=== PATIENT | male | born 1940 | race Caucasian/White ===

== ENCOUNTER 2024-10-17 11:41 | Inpatient (IN) | payer OTHER ==
[2024-10-17] MEDS ORDERED: ACETAMINOPHEN 500 MG TAB ONE (12:03)
[2024-10-17] MEDS ORDERED: IBUPROFEN 400 MG TAB ONE (12:04)
[2024-10-17] MEDS ORDERED: NA CHLORIDE 0.9% 100 ML ONE ×2 (12:04→21:33)
[2024-10-17] MEDS ORDERED: PIPERACIL/TAZO 3.375 GM VIAL IV ONE (12:04)
[2024-10-17] MEDS ORDERED: NA CHLORIDE 0.9% 2,000 ML ONE ×2 (12:04→19:10)
[2024-10-17 13:11] LABS: Absolute Basophils 0.1 K/uL (0-0.5); Absolute Eosinophils 0.1 K/uL (0-0.5); Absolute Lymphocytes (CBC) 0.9 K/uL (0.7-4.9); Absolute Monocytes 5.1 K/uL (0.1-1.3); Basophils % 0.4 % (0-1.3); Eosinophils % 0.7 % (0-4.4); Hematocrit 29.8 % (39.6-49.0); Hemoglobin 9.9 g/dL (13.6-17.9); Lymphocytes % 6.4 % (15.3-44.8); MCH 32.1 pg (27.0-35.0); MCHC 33.2 g/dL (32.0-36.0); MCV 96.7 fL (80-100); MPV 6.9 fL (7.6-11.3); Monocytes % 36.2 % (3.3-12.3); Neutrophils % 56.3 % (41.7-73.7); Platelets 161 thou/uL (152-406); RBC Red Blood Cell Count 3.09 M/uL (4.33-5.43); Red Cell Distribution Width 22.5 % (12.1-15.2)
[2024-10-17 13:24] LABS: Calcium Oxalate Crystals- Ur Few /HPF (None Seen); Specific Gravity 1.017 (1.005-1.030); Sqamous Epithelial <5 /HPF (None Seen); Urine Bacteria 20-50 /HPF (<20); Urine Bilirubin NEGATIVE (Negative); Urine Blood 3+ (OVER) (Negative); Urine Clarity Extremely Turbid (Clear); Urine Color Orange (Yellow); Urine Culture Reflex Order REFLEXED; Urine Glucose NEGATIVE (Negative); Urine Ketones NEGATIVE (Negative); Urine Microscopic Reflex YN ORDER UMIC; Urine Nitrite 1+ (Negative); Urine Protein 3+ (Negative); Urine RBC >50 /HPF (None Seen); Urine Urobilinogen Normal (Normal); Urine WBC >50 /HPF (<5); Urine WBC Clump Many /HPF (None Seen)
--- NOTE | 2024-10-17 13:30 | RAD REPORT ---
EXAM: Chest Single View HISTORY: COUGH COMPARISON: None. FINDINGS: LUNGS/PLEURA: The lungs are clear. No pleural effusions or pneumothorax. No pulmonary edema. MEDIASTINUM: The mediastinal silhouette is within normal limits. CARDIAC: Mild cardiomegaly UPPER ABDOMEN: No significant abnormality. BONES: No acute abnormality. LINES/TUBES/OTHER: Pacemaker present. IMPRESSION: No evidence of acute cardiopulmonary disease.
[2024-10-17 13:32] LABS: SARS-CoV-2 Antigen CONTROL BLUE LINE VIS/BG OK; SARS-CoV-2 Antigen Rapid Res Negative (Negative)
[2024-10-17] MEDS ORDERED: NOREPINEPHRINE BITARTRATE/D5W 4 MG/250 ML BAG IV ONE ×3 (14:23→19:50)
[2024-10-17 14:26] LABS: Albumin 2.2 g/dL (3.4-5.0); Albumin/Globulin Ratio 0.5 (1.1-1.8); Anion Gap 11.5 mEq/L (5.0-15.0); Bilirubin Total 1.2 mg/dL (0.2-1.0); Globulin 4.1 g/dL (2.3-3.5); Potassium 3.5 mEq/L (3.5-5.1); Protein, Total 6.3 g/dL (6.4-8.2)
--- NOTE | 2024-10-17 14:29 | ER ---
Nurse's Notes [facility] Name: Adi Chapa Jr Age: 83 yrs Sex: Male : 1940 Arrival Date: 10/17/2024 Time: 11:41 Bed 4 Private MD: Diagnosis: Severe sepsis with septic shock;UTI/ Urinary tract infection, site not specified;Pyelonephritis acute Presentation: 10/17 11:58 Chief complaint: EMS states: [facility] SINCE THURSDAY. Coronavirus screen: At this time, bp the client does not indicate any symptoms associated with coronavirus-19. Ebola Screen: No symptoms or risks identified at this time. Initial Sepsis Screen: Does the patient meet any 2 criteria? No. Patient's initial sepsis screen is negative. Does the patient have a suspected source of infection? No. Patient's initial sepsis screen is negative. Risk Assessment: Do you want to hurt yourself or someone else? Patient reports no desire to harm self or others. Onset of symptoms is unknown. 11:58 Method Of Arrival: EMS: [facility] bp 11:58 Acuity: JOSÉ 2 bp Triage Assessment: 12:02 General: Appears uncomfortable, obese. bp Historical: - Allergies: 23:25 Cefdinir; al5 23:25 atorvastatin; al5 - PMHx: 23:25 Hypertensive disorder; Atrial fibrillation; Congestive heart failure; Gout; al5 Hypercholesterolemia; - PSHx: 23:25 pacemaker; stents; kidney stone removal; bladder stone removal; hernia repair; al5 - Immunization history:: Adult Immunizations. - Infectious Disease History:: Denies. - Social history:: Smoking status: Patient reports the use of cigarette tobacco products, unknown amount. Screenin:35 Abuse screen: Denies threats or abuse. Denies injuries from another. Nutritional ko1 screening: No deficits noted. Tuberculosis screening: No symptoms or risk factors identified. 20:16 [facility] ED Fall Risk Assessment (Adult) History of falling in the last 3 months, al5 including since admission No falls in past 3 months (0 pts) Confusion or Disorientation No (0 pts) Intoxicated or Sedated No (0 pts) Impaired Gait Yes (1 pt) Mobility Assist Device Used Yes (1 pt) Altered Elimination Yes (1 pt) Score/Fall Risk Level 3 or more points = High Risk Oriented to surroundings, Maintained a safe environment, Provided non-skid footwear, Hourly rounding (assess needs \T\ fall precautionary measures) done. Assessment: 12:00 General: Appears ill, Behavior is calm, cooperative, appropriate for age. Pain: Denies bp pain. 13:00 Reassessment: No changes from previously documented assessment. Patient is alert, bp oriented x 3, equal unlabored respirations, skin warm/dry/pink. : suprapubic catheter in place to gravity drainage Urine is cloudy. 14:00 Reassessment: No changes from previously documented assessment. Patient is alert, bp oriented x 3, equal unlabored respirations, skin warm/dry/pink. 15:00 Reassessment: No changes from previously documented assessment. Patient is alert, bp oriented x 3, equal unlabored respirations, skin warm/dry/pink. TRANSFER INITIATED. 17:00 Reassessment: No changes from previously documented assessment. Patient is alert, bp oriented x 3, equal unlabored respirations, skin warm/dry/pink. TRANSFER CANCELLED FOR ADMIT. 19:10 General: Appears in no apparent distress. ill, well groomed, Behavior is calm, al5 cooperative. Pain: Denies pain. Neuro: Level of Consciousness is awake, alert, obeys commands, Oriented to person, place, time, situation. 19:10 Cardiovascular: Patient's skin is warm and dry. Respiratory: Airway is patent al5 Respiratory effort is even, unlabored, Respiratory pattern is regular, symmetrical. GI: No signs and/or symptoms were reported involving the gastrointestinal system. : suprapubic catheter in place to gravity drainage Urine is cloudy. EENT: No signs and/or symptoms were reported regarding the EENT system. Derm: Skin is intact, is healthy with good turgor, Skin is pink, warm \T\ dry. normal. Musculoskeletal: No signs and/or symptoms reported regarding the musculoskeletal system. 20:30 Reassessment: Patient appears in no apparent distress at this time. No changes from al5 previously documented assessment. Patient and/or family updated on plan of care and expected duration. Pain level reassessed. Patient is alert, oriented x 3, equal unlabored respirations, skin warm/dry/pink. 21:57 Reassessment: Patient appears in no apparent distress at this time. Patient and/or al5 family updated on plan of care and expected duration. Pain level reassessed. Reassessment: Patient appears in no apparent distress at this time. No changes from previously documented assessment. Patient and/or family updated on plan of care and expected duration. Pain level reassessed. Patient is alert, oriented x 3, equal unlabored respirations, skin warm/dry/pink. 22:40 Neuro: Level of Consciousness is awake, alert, obeys commands, Oriented to person, al5 place, time, situation. Cardiovascular: Rhythm is ventricular pacer. Respiratory: Airway is patent Respiratory effort is even, unlabored, Respiratory pattern is regular, symmetrical. GI: No signs and/or symptoms were reported involving the gastrointestinal system. : suprapubic catheter in place to gravity drainage Urine is cloudy, no additional urine output. EENT: No signs and/or symptoms were reported regarding the EENT system. Derm: Skin is intact, is healthy with good turgor, Skin is dry, Skin is pale, Skin temperature is warm. Musculoskeletal: No signs and/or symptoms reported regarding the musculoskeletal system. 22:40 Musculoskeletal: No signs and/or symptoms reported regarding the musculoskeletal system.al5 Vital Signs: 11:58 BP 90 / 50; Pulse 110; Resp 20; Temp 103; Pulse Ox 95% ; Weight 104.33 kg; bp 12:09 BP 105 / 46; Pulse Ox 97% ; ec2 12:12 BP 84 / 53; Pulse 106; Resp 20; Temp 100.2; Pulse Ox 99% ; Weight 82.55 kg; Height 6 bp ft. 0 in. ; 12:32 BP 105 / 46; ec2 12:35 BP 105 / 46; Pulse 111; Resp 20; Pulse Ox 100% ; ko1 13:50 BP 97 / 49; Pulse 104; Resp 17; Pulse Ox 98% ; ko1 13:50 Pulse 105; ec2 14:07 Pulse 74; ec2 14:15 BP 66 / 40; Pulse 80; Resp 15; Pulse Ox 97% ; ko1 14:50 BP 85 / 70; Pulse 80; Resp 15; Pulse Ox 97% ; ko1 15:00 BP 73 / 28; Pulse 76; Resp 18; Pulse Ox 97% ; ko1 15:31 BP 91 / 41; Pulse 77; Resp 16; Pulse Ox 97% ; ko1 15:50 BP 82 / 42; Pulse 79; Resp 15; Pulse Ox 97% ; ko1 16:21 BP 97 / 40; ec2 16:31 BP 97 / 40; Pulse 71; Resp 15; Pulse Ox 98% ; ko1 16:42 BP 100 / 43; Pulse 70; Resp 16; Pulse Ox 97% ; ko1 16:42 BP 100 / 43; ec2 17:00 BP 107 / 46; Pulse 80; Resp 20; Pulse Ox 96% ; bp 19:00 BP 95 / 53; Pulse 76; Resp 15; Pulse Ox 100% on R/A; al5 19:30 BP 101 / 50; Pulse 73; Resp 21; Pulse Ox 100% on R/A; al5 19:47 BP 78 / 52; Pulse 70; Resp 22; Pulse Ox 100% on R/A; al5 19:56 BP 83 / 56; Pulse 67; Resp 19; Pulse Ox 100% on R/A; al5 20:00 BP 81 / 48; Pulse 73; Resp 22; Pulse Ox 100% on R/A; al5 20:13 BP 82 / 53; Pulse 65; Resp 22; Pulse Ox 100% on R/A; al5 20:15 BP 84 / 53; Pulse 69; Resp 19; Pulse Ox 100% on R/A; al5 20:25 BP 90 / 56; Pulse 72; Resp 21; Temp 97.6(O); Pulse Ox 100% on R/A; al5 20:30 BP 89 / 48; Pulse 71; Resp 20; Pulse Ox 100% on R/A; al5 20:45 BP 88 / 45; Pulse 70; Resp 21; Pulse Ox 100% on R/A; al5 21:00 BP 82 / 59; Pulse 94; Resp 24; Pulse Ox 100% on R/A; al5 21:15 BP 85 / 49; Pulse 78; Resp 24; Pulse Ox 100% on R/A; al5 21:30 BP 84 / 53; Pulse 76; Resp 22; Pulse Ox 99% on R/A; al5 21:45 BP 72 / 54; Pulse 76; Resp 12; Pulse Ox 100% on R/A; al5 22:00 BP 82 / 48; Pulse 79; Resp 12; Pulse Ox 100% on R/A; al5 22:15 BP 58 / 41; Pulse 71; Resp 15; Pulse Ox 100% on R/A; al5 22:18 BP 56 / 42; Pulse 69; Resp 11; Pulse Ox 100% on R/A; al5 22:30 BP 58 / 37; Pulse 65; Resp 11; Pulse Ox 100% on R/A; al5 22:35 BP 65 / 48; Pulse 65; Resp 13; Pulse Ox 100% on R/A; al5 22:40 BP 59 / 44; Pulse 61; Resp 12; Pulse Ox 100% on R/A; al5 22:45 BP 63 / 45; Pulse 60; Resp 16; Pulse Ox 100% on R/A; al5 22:50 BP 74 / 51; Pulse 62; Resp 21; Pulse Ox 100% on R/A; al5 22:56 BP 60 / 49; Pulse 78; Resp 20; Pulse Ox 100% on R/A; al5 23:00 BP 74 / 49; Pulse 68; Resp 18; Pulse Ox 100% on R/A; al5 23:05 BP 69 / 46; Pulse 70; Resp 13; Pulse Ox 100% on R/A; al5 23:10 BP 62 / 45; Pulse 70; Resp 21; Pulse Ox 99% on R/A; al5 23:15 BP 70 / 51; Pulse 69; Resp 18; Pulse Ox 100% on R/A; al5 23:20 BP 74 / 51; Pulse 61; Resp 20; Pulse Ox 100% on R/A; al5 23:22 BP 87 / 62; Pulse 78; Resp 23; Pulse Ox 100% on R/A; al5 23:25 BP 113 / 67; Pulse 69; Resp 23; Pulse Ox 100% on R/A; al5 23:40 BP 116 / 68; Pulse 67; Resp 21; Pulse Ox 100% on R/A; al5 12:12 Body Mass Index 24.68 (82.55 kg, 182.88 cm) bp 23:40 in ICU prior to leaving patient with ICU team and transferring care al5 ED Course: 11:45 Patient arrived in ED. ec2 11:45 Ralf Leiva MD is Attending Physician. ec2 11:55 Arm band placed on Patient placed in an exam room, on a stretcher. ll1 11:57 Andre Molina, RN is Primary Nurse. bp 12:01 Triage completed. bp 12:16 12 lead ECG. rs6 12:24 EKG done, by ED staff, reviewed by Ralf Leiva MD. ko1 12:31 Radiology exam delayed due to nurse starting IV. rs4 12:35 Patient has correct armband on for positive identification. Placed in gown. Bed in low ko1 position. Call light in reach. Side rails up X2. Provided Education on: labs, meds. 12:35 No provider procedures requiring assistance completed. ko1 12:53 Inserted saline lock: 20 gauge in right forearm, using aseptic technique. wrist, using rs6 aseptic technique. hand, using aseptic technique. Blood collected. 13:23 CXR XRAY In Process Unspecified. EDMS 14:19 Lab(s) recollected, by me, sent to lab. ko1 14:36 CT Abd/Pelvis - Without Contrast In Process Unspecified. EDMS 14:56 Accessed peripheral vein via ultrasound, utilizing dynamic ultrasound technique Blood bp collected. 15:15 initiated transfer to [facility], pt was denied due to no beds a any [facility] hospital.per Марина. 15:22 initiated transfer to [facility]. bd 16:32 Cherelle Berry MD is Hospitalizing Provider. ec2 16:35 transfer cancelled by provider pt will be admitted here. bd 18:00 Door closed. Noise minimized. Lights dimmed. Warm blanket given. Repositioned patient. ko1 20:17 Patient admitted, IV remains in place. al5 20:45 20G L Forearm IV removed due to infiltration. al5 21:18 Procedure consent explained by staff, explained by physician, signed by patient, verbal al5 consent for initials to be signed due to him not being able to see the paper well. had attempted to put initials down but pen was drying out even after switching pens. 21:35 Primary Nurse role handed off by Andre Molina, RN rv1 21:53 Kianna Jarquin, NITO is Primary Nurse. al5 21:57 Assisted provider with central line placement. Set up central line tray. Triple lumen al5 line placed in right internal jugular. Line placed by Marco Antonio Bender MD Placement verified by CXR, blood return, Dressed with Tegaderm, Patient tolerated well. Before procedure, did Practitioner(s) obtain informed consent? Yes. Patient \T\ family education about procedure, CLABSI prevention and S/S of infection? Yes. Time-out/Briefing performed prior to start of procedure? Yes. Was handwashing/sanitizing done immediately prior to procedure? Yes. Was patient positioned to in a way to prevent air embolism? Yes. Was procedure site sterilized? Yes, with chlorhexidine. Was the site allowed to dry? Yes. Was local anesthetic and/or sedation utilized? Yes. During the procedure, did the Practitioner(s) maintain a sterile field? Yes. Were unused ports clamped during insertion? Yes. Was a 2nd qualified MD obtained after 3 unsuccessful insertion attempts? No. Was blood aspirated from each lumen? Yes. After the procedure, did the Practitioner(s) clean the site and apply a sterile dressing? Yes. 23:35 One-on-one care X 240 minutes. al5 Administered Medications: 22:53 Discontinued: epinephrine (pf)0.01 mcg/kg/min IV at calculated rate See Administration al5 Instructions; Standard concentration 4 mg / 250 mL D5W; Recommended max rate 2 mcg/kg/min; Titrate 0.01 mcg/kg/min as often as every 3 minutes to achieve goal [see titration policy]; Goal parameter MAP greater than 65 mmHg. 12:23 Drug: Acetaminophen PO 1000 mg PO once Route: PO; ko1 17:07 Follow up: Response: No adverse reaction bp 12:23 Drug: Ibuprofen PO 800 mg PO once Route: PO; ko1 17:07 Follow up: Response: No adverse reaction bp 12:41 Drug: Piperacillin-Tazobactam IVPB 3.375 grams IVPB once over 60 mins; (mix in NS 100 bp mL) Route: IVPB; Infused Over: 60 mins; Site: left forearm; 13:41 Follow up: Response: No adverse reaction; IV Status: Completed infusion; IV Intake: ko1 100ml 12:42 Drug: NS 0.9% IV (30 ml/kg) 30 ml/kg IV at bolus once; Sepsis Protocol; to be given as bp a bolus over 90 minutes Route: IV; Rate: bolus; Site: left forearm; 17:07 Follow up: IV Status: Completed infusion bp 14:28 Drug: Norepinephrine IV 0.1 mcg/kg/min IV at calculated rate See Administration ko1 Instructions; (Standard concentration 4 mg / 250 mL D5W); Recommended max rate 3 mcg/kg/min; Titrate 0.05 mcg/kg/min as often as every 5 minutes to achieve goal (see titration policy); Goal parameter MAP greater than 65 mmHg. Route: IV; Rate: 5 mcg/min; Site: right wrist; 14:57 Follow up: Rate change 8 mcg/min ko1 15:15 Follow up: Rate change 15 mcg/min ko1 15:50 Follow up: BP 82 / 42; Pulse 79 bpm; Resp 15 bpm; Pulse Ox 97% ; Rate change 20 mcg/min ko1 16:31 Follow up: BP 97 / 40; Pulse 71 bpm; Resp 15 bpm; Pulse Ox 98% ; Rate change 30 mcg/min ko1 17:06 Follow up: IV Status: Infusion continued bp 10/18 00:24 Follow up: Response: No adverse reaction; IV Status: Infusion continued upon admission al5 10/17 18:51 Drug: EPINEPHrine (PF) IV 0.01 mcg/kg/min IV at calculated rate See Administration ko1 Instructions; Standard concentration 4 mg / 250 mL D5W; Recommended max rate 2 mcg/kg/min; Titrate 0.01 mcg/kg/min as often as every 3 minutes to achieve goal [see titration policy]; Goal parameter MAP greater than 65 mmHg. Route: IV; Rate: 0.05 mcg/kg/min; Site: left antecubital; 20:35 Follow up: Rate change 0.1 mcg/kg/min al5 19:20 Drug: NS 0.9% IV 1000 ml IV at 1000 ml once; to be given as a bolus over 60 minutes al5 Route: IV; Rate: 1000 ml; Site: right wrist; 20:19 Follow up: Response: No adverse reaction; IV Status: Completed infusion; IV Intake: al5 1000ml Medication: 13:50 VIS not applicable for this client. ko1 Intake: 13:41 IV: 100ml; Total: 100ml. ko1 20:19 IV: 1000ml; Total: 1100ml. al5 Outcome: 14:29 ER care complete, transfer ordered by MD. ec2 16:32 Decision to Hospitalize by Provider. ec2 23:39 Patient left the ED. bm8 23:39 Admitted to ICU accompanied by nurse, accompanied by tech, via stretcher, room 5, with kl chart, 23:39 Condition: stable 23:39 Instructed on the need for admit, Demonstrated understanding of instructions, Signatures: Dispatcher [employer] EDMS Latha Ackerman Kimberly RN Andre Nelson RN Beth Lofton RN RN ll1 Cat Sears, NITO RN Francheska Gonzalez rs4 Guera Martinez rv1 Ralf Leiva MD MD ec2 Juancho Saldivar, RN RN bm8 Kianna Jarquin RN RN al5 Smith, Ryan rs6 Corrections: (The following items were deleted from the chart) 12:54 12:53 Inserted saline lock: 20 gauge in right forearm, using aseptic technique. wrist, rs6 using aseptic technique. hand, using aseptic technique. Blood collected. rs6 22:48 20:25 BP 90 / 56; Pulse 72bpm; Resp 21bpm; Pulse Ox 100% RA; al5 al5 10/18 99:10/17 23:40 BP 166 / 68; Pulse 67bpm; Resp 21bpm; Pulse Ox 100% RA; in ICU prior to al5 leaving patient with ICU team and transferring care; al5 10/18 99:10/17 22:10 Reassessment: Patient appears in no apparent distress at this time. Patient al5 and/or family updated on plan of care and expected duration. Pain level reassessed. al5 10/18 99:10/17 22:10 Neuro: Level of Consciousness is awake, alert, obeys commands, Oriented to al5 person, place, time, situation, al5 10/18 99:10/17 22:10 Respiratory: Airway is patent Respiratory effort is even, unlabored, al5 Respiratory pattern is regular, symmetrical, al5 10/18 99:10/17 22:10 Cardiovascular: Rhythm is ventricular pacer al5 al5 10/18 99:10/17 22:10 GI: No signs and/or symptoms were reported involving the gastrointestinal al5 system. al5 10/18 99:10/17 22:10 : suprapubic catheter in place to gravity drainage Urine is cloudy, no al5 additional urine output al5 10/18 99:10/17 22:10 EENT: No signs and/or symptoms were reported regarding the EENT system. al5 al5 10/18 99:10/17 22:10 Derm: Skin is intact, is healthy with good turgor, Skin is dry, Skin is al5 pale, Skin temperature is warm al5 10/18 99:10/17 22:10 Musculoskeletal: No signs and/or symptoms reported regarding the al5 musculoskeletal system. al5 10/18 99:10/17 22:10 Musculoskeletal: No signs and/or symptoms reported regarding the al5 musculoskeletal system. al5 10/18 99:10/17 21:57 Reassessment: Patient appears in no apparent distress at this time. No al5 changes from previously documented assessment. Patient and/or family updated on plan of care and expected duration. Pain level reassessed. Patient is alert, oriented x 3, equal unlabored respirations, skin warm/dry/pink. al5 10/18 99:10/17 22:40 Reassessment: Patient appears in no apparent distress at this time. Patient al5 and/or family updated on plan of care and expected duration. Pain level reassessed. al5 10/18 99:10/17 22:40 Reassessment: Patient appears in no apparent distress at this time. No al5 changes from previously documented assessment. Patient and/or family updated on plan of care and expected duration. Pain level reassessed. Patient is alert, oriented x 3, equal unlabored respirations, skin warm/dry/pink. al5 10/18 99:10/17 22:40 Musculoskeletal: No signs and/or symptoms reported regarding the al5 musculoskeletal system. al5
--- NOTE | 2024-10-17 14:30 | EDPHYS ---
Physician Documentation [facility] Name: Adi Chapa Jr Age: 83 yrs Sex: Male : 1940 Arrival Date: 10/17/2024 Time: 11:41 Bed 4 Private MD: ED Physician Ralf Leiva HPI: 10/17 11:56 This 83 yrs old Male presents to ER via EMS with complaints of dysuria. ec2 11:56 Patient arrives today for evaluation of fever as well as dysuria. Onset of symptoms ec2 several days ago. No cough or cold symptoms. Some abdominal discomfort as well.. Historical: - Allergies: 23:25 Cefdinir; al5 23:25 atorvastatin; al5 - PMHx: 23:25 Hypertensive disorder; Atrial fibrillation; Congestive heart failure; Gout; al5 Hypercholesterolemia; - PSHx: 23:25 pacemaker; stents; kidney stone removal; bladder stone removal; hernia repair; al5 - Immunization history:: Adult Immunizations. - Infectious Disease History:: Denies. - Social history:: Smoking status: Patient reports the use of cigarette tobacco products, unknown amount. ROS: 11:57 Constitutional: as per hpi ec2 Exam: 11:57 Constitutional: GEN: NAD Head: atraumatic Eyes: EOMI Ears: External ears are ec2 normal. CV: Tachycardia LUNGS: no respiratory distress ABD: non-distended, soft, generally tender SKIN: no evidence of rashes MSK: no evidence of trauma Vital Signs: 11:58 BP 90 / 50; Pulse 110; Resp 20; Temp 103; Pulse Ox 95% ; Weight 104.33 kg; bp 12:09 BP 105 / 46; Pulse Ox 97% ; ec2 12:12 BP 84 / 53; Pulse 106; Resp 20; Temp 100.2; Pulse Ox 99% ; Weight 82.55 kg; Height 6 bp ft. 0 in. ; 12:32 BP 105 / 46; ec2 12:35 BP 105 / 46; Pulse 111; Resp 20; Pulse Ox 100% ; ko1 13:50 BP 97 / 49; Pulse 104; Resp 17; Pulse Ox 98% ; ko1 13:50 Pulse 105; ec2 14:07 Pulse 74; ec2 14:15 BP 66 / 40; Pulse 80; Resp 15; Pulse Ox 97% ; ko1 14:50 BP 85 / 70; Pulse 80; Resp 15; Pulse Ox 97% ; ko1 15:00 BP 73 / 28; Pulse 76; Resp 18; Pulse Ox 97% ; ko1 15:31 BP 91 / 41; Pulse 77; Resp 16; Pulse Ox 97% ; ko1 15:50 BP 82 / 42; Pulse 79; Resp 15; Pulse Ox 97% ; ko1 16:21 BP 97 / 40; ec2 16:31 BP 97 / 40; Pulse 71; Resp 15; Pulse Ox 98% ; ko1 16:42 BP 100 / 43; Pulse 70; Resp 16; Pulse Ox 97% ; ko1 16:42 BP 100 / 43; ec2 17:00 BP 107 / 46; Pulse 80; Resp 20; Pulse Ox 96% ; bp 19:00 BP 95 / 53; Pulse 76; Resp 15; Pulse Ox 100% on R/A; al5 19:30 BP 101 / 50; Pulse 73; Resp 21; Pulse Ox 100% on R/A; al5 19:47 BP 78 / 52; Pulse 70; Resp 22; Pulse Ox 100% on R/A; al5 19:56 BP 83 / 56; Pulse 67; Resp 19; Pulse Ox 100% on R/A; al5 20:00 BP 81 / 48; Pulse 73; Resp 22; Pulse Ox 100% on R/A; al5 20:13 BP 82 / 53; Pulse 65; Resp 22; Pulse Ox 100% on R/A; al5 20:15 BP 84 / 53; Pulse 69; Resp 19; Pulse Ox 100% on R/A; al5 20:25 BP 90 / 56; Pulse 72; Resp 21; Temp 97.6(O); Pulse Ox 100% on R/A; al5 20:30 BP 89 / 48; Pulse 71; Resp 20; Pulse Ox 100% on R/A; al5 20:45 BP 88 / 45; Pulse 70; Resp 21; Pulse Ox 100% on R/A; al5 21:00 BP 82 / 59; Pulse 94; Resp 24; Pulse Ox 100% on R/A; al5 21:15 BP 85 / 49; Pulse 78; Resp 24; Pulse Ox 100% on R/A; al5 21:30 BP 84 / 53; Pulse 76; Resp 22; Pulse Ox 99% on R/A; al5 21:45 BP 72 / 54; Pulse 76; Resp 12; Pulse Ox 100% on R/A; al5 22:00 BP 82 / 48; Pulse 79; Resp 12; Pulse Ox 100% on R/A; al5 22:15 BP 58 / 41; Pulse 71; Resp 15; Pulse Ox 100% on R/A; al5 22:18 BP 56 / 42; Pulse 69; Resp 11; Pulse Ox 100% on R/A; al5 22:30 BP 58 / 37; Pulse 65; Resp 11; Pulse Ox 100% on R/A; al5 22:35 BP 65 / 48; Pulse 65; Resp 13; Pulse Ox 100% on R/A; al5 22:40 BP 59 / 44; Pulse 61; Resp 12; Pulse Ox 100% on R/A; al5 22:45 BP 63 / 45; Pulse 60; Resp 16; Pulse Ox 100% on R/A; al5 22:50 BP 74 / 51; Pulse 62; Resp 21; Pulse Ox 100% on R/A; al5 22:56 BP 60 / 49; Pulse 78; Resp 20; Pulse Ox 100% on R/A; al5 23:00 BP 74 / 49; Pulse 68; Resp 18; Pulse Ox 100% on R/A; al5 23:05 BP 69 / 46; Pulse 70; Resp 13; Pulse Ox 100% on R/A; al5 23:10 BP 62 / 45; Pulse 70; Resp 21; Pulse Ox 99% on R/A; al5 23:15 BP 70 / 51; Pulse 69; Resp 18; Pulse Ox 100% on R/A; al5 23:20 BP 74 / 51; Pulse 61; Resp 20; Pulse Ox 100% on R/A; al5 23:22 BP 87 / 62; Pulse 78; Resp 23; Pulse Ox 100% on R/A; al5 23:25 BP 113 / 67; Pulse 69; Resp 23; Pulse Ox 100% on R/A; al5 23:40 BP 116 / 68; Pulse 67; Resp 21; Pulse Ox 100% on R/A; al5 12:12 Body Mass Index 24.68 (82.55 kg, 182.88 cm) bp 23:40 in ICU prior to leaving patient with ICU team and transferring care al5 Procedures: 21:57 Central Line: the site was prepped with Betadine, in sterile fashion, a triple lumen sp4 catheter was inserted, in the right internal jugular vein, in 1 attempts. placement was verified, by CXR, by blood return, Ultrasound-guided central line, the site was dressed with 4X4s, Tegaderm, using sterile technique, the patient tolerated the procedure, well, Ultrasound-guided central line placed for resuscitation. 10/18 00:31 Performed Suprapubic catheter replacement, suprapubic catheter replaced with the sp4 patient and confirmed to be in urinary bladder via Gastrografin enhanced pelvic x-ray. . MDM: 10/17 11:45 Medical Screening Exam initiated ec2 11:57 Data reviewed: vital signs, nurses notes. ED course: Patient arrives today for dysuria ec2 as well as fever. Examination yields tachycardia. Will obtain a septic workup and empirically treat with antibiotics for possible source. Will obtain CT abdomen pelvis as well to evaluate for intra-abdominal pathology. Differential diagnosis include UTI, viral infection, intra-abdominal infection.. 12:22 ED course: EKG independently reviewed and interpreted by me, shows A-fib with rate of ec2 105, no acute ST segment elevations, intervals are nonactionable.. 12:43 ED course: Sepsis reassessment complete. ec2 13:10 ED course: Sepsis reassessment complete. ec2 13:50 ED course: Patient with improving tachycardia. ec2 14:28 ED course: Patient with hypertensive blood pressures, will place the patient on ec2 Levophed and transferred to ICU capable facility as we have no ICU capability at this time.. 14:30 ED course: Patient was recently admitted to [facility] and wants to be transferred ec2 back there for ICU admission . 15:03 ED course: Patient was hypotensive blood pressures in the 60s, initiated Levophed at 8 ec2 mics per minute, patient with improvement in blood pressure 85/70.. 16:20 ED course: Attempted to transfer patient to [facility], [facility], [facility], [address] however they are declined due to capacity at this time.. 16:30 ED course: Will admit here for continued care. Family appreciative and would also like 2 to stay here. 10/18 00:29 ED course: After Montemayor Replacement - XR PELVIS 1-2 VIEWS CLINICAL STATEMENT: Suprapubic sp4 catheter COMPARISON: None TECHNIQUE: 3 frontal view of the pelvis was obtained following Gastrografin contrast administration via the suprapubic catheter. FINDINGS: The first image demonstrates a contrast-filled suprapubic catheter terminates in the distal urethra. Small amount of extraluminal contrast at the level of the diaphragmatic urethra could be within the urethra versus external to the patient. The last image demonstrates interval retraction of the catheter into the urinary bladder. The contrast opacified urinary bladder is incompletely distended and demonstrates multiple diverticula. There is contrast opacification of entire course of the urethra. There is focal widening of contrast enhanced area at diaphragmatic urethra; underlying injury or ulceration cannot be excluded. There is trace contrast filling of bilateral distal ureters. Bones are intact. Multiple small phleboliths in pelvis. IMPRESSION: 1. Urinary bladder diverticulosis. 2. Focal widening of contrast enhanced diaphragmatic urethra; underlying injury or ulceration cannot be excluded. . ED course: EXAM: Chest Single View HISTORY: central line placement Right IJ COMPARISON: Same-day FINDINGS: Right IJ approach central line placement. Tip overlies the expected location of the mid SVC. The heart is shifted to the left which explains the slight leftward shift of the line tip. No pneumothorax. Pacemaker. IMPRESSION: Right IJ approach central line with tip likely overlying the expected location of the mid SVC. Note that the tip of the IJ catheter deviates slightly towards the left but this likely is the expected course of the SVC as the heart is somewhat shifted to the left. No pneumothorax. . 10/17 11:46 Order name: Blood Culture Adult (2) 2 10/17 11:46 Order name: CBC with Diff ec2 10/17 11:46 Order name: CMP; Complete Time: 14:33 2 10/17 11:46 Order name: Lactate w/ 2H reflex if indic.; Complete Time: 13:45 2 10/17 11:46 Order name: Protime (+inr); Complete Time: 15:35 2 10/17 11:46 Order name: Ptt, Activated; Complete Time: 15:35 2 10/17 11:46 Order name: Urinalysis w/ reflexes; Complete Time: 13:45 2 10/17 11:49 Order name: Influenza Screen (a \T\ B); Complete Time: 13:45 ec2 10/17 11:49 Order name: SARS RAPID; Complete Time: 13:37 ec2 10/17 13:17 Order name: Manual Differential EDMS 10/17 13:40 Order name: Ghost Lactate-NO COLLECT Timer; Complete Time: 15:43 EDMS 10/17 13:43 Order name: Urine Culture EDMS 10/17 19:24 Order name: ABG Arterial Blood Gas EDMS 10/17 19:24 Order name: C-Reactive Protein EDMS 10/17 19:24 Order name: C-Reactive Protein EDMS 10/17 19:24 Order name: CBC with Automated Diff EDMS 10/17 19:24 Order name: CBC with Automated Diff EDMS 10/17 19:24 Order name: Comprehensive Metabolic Panel EDMS 10/17 19:24 Order name: Comprehensive Metabolic Panel EDMS 10/17 19:24 Order name: Magnesium EDMS 10/17 19:24 Order name: Magnesium EDMS 10/17 19:24 Order name: NT PRO-BNP EDMS 10/17 19:24 Order name: NT PRO-BNP EDMS 10/17 19:24 Order name: Phosphorus EDMS 10/17 19:24 Order name: Phosphorus EDMS 10/17 19:24 Order name: Procalcitonin EDMS 10/17 19:24 Order name: Procalcitonin; Complete Time: 21:59 EDMS 10/17 19:24 Order name: Protime (+INR) EDMS 10/17 19:24 Order name: Protime (+INR) EDMS 10/17 19:24 Order name: PTT, Activated Partial Thromb EDMS 10/17 19:24 Order name: PTT, Activated Partial Thromb EDMS 10/17 19:24 Order name: Troponin High Sensitivity EDMS 10/17 19:24 Order name: Troponin High Sensitivity EDMS 10/17 19:24 Order name: Troponin High Sensitivity EDMS 10/17 19:24 Order name: Troponin High Sensitivity EDMS / 19:24 Order name: Troponin High Sensitivity; Complete Time: 21:59 EDMS 10/17 20:29 Order name: Lactate Sepsis 2 HR Follow-up; Complete Time: 21:59 EDMS 10/17 11:49 Order name: CXR XRAY; Complete Time: 13:37 ec2 10/17 14:16 Order name: CT Abd/Pelvis - Without Contrast; Complete Time: 15:24 ec2 10/17 19:24 Order name: Echo with Doppler EDSC 10/17 21:58 Order name: Chest Single View XRAY [facility] 10/17 21:59 Order name: CT Abd/Pelvis - Without Contrast 4 10/17 22:28 Order name: RAD; Complete Time: 22:52 EDMS 10/17 22:52 Order name: Pelvis XRAY: check montemayor placement 4 10/17 11:46 Order name: EKG; Complete Time: 11:46 ec2 10/17 19:24 Order name: CONS Physician Consult EDSC 10/17 11:46 Order name: Accucheck; Complete Time: 12:11 ec2 10/17 11:46 Order name: Cardiac monitoring; Complete Time: 12:11 ec2 10/17 11:46 Order name: EKG - Nurse/Tech; Complete Time: 12:11 ec2 10/17 11:46 Order name: IV Saline Lock - Large Bore; Complete Time: 12:42 ec2 10/17 11:46 Order name: Labs collected and sent; Complete Time: 12:42 ec2 10/17 11:46 Order name: O2 Per Protocol; Complete Time: 12:11 ec2 10/17 11:46 Order name: O2 Sat Monitoring; Complete Time: 12:11 ec2 10/17 11:46 Order name: Vital Signs; Complete Time: 12:11 ec2 10/17 13:21 Order name: Labs - recollect needed: blue, green, purple; Complete Time: 14:19 1 10/17 14:26 Order name: Labs - recollect needed: recollect blue top, fill to line; Complete Time: ll1 14:57 Administered Medications: 10/17 22:53 Discontinued: epinephrine (pf)0.01 mcg/kg/min IV at calculated rate See Administration al5 Instructions; Standard concentration 4 mg / 250 mL D5W; Recommended max rate 2 mcg/kg/min; Titrate 0.01 mcg/kg/min as often as every 3 minutes to achieve goal [see titration policy]; Goal parameter MAP greater than 65 mmHg. 12:23 Drug: Acetaminophen PO 1000 mg PO once Route: PO; ko1 17:07 Follow up: Response: No adverse reaction bp 12:23 Drug: Ibuprofen PO 800 mg PO once Route: PO; ko1 17:07 Follow up: Response: No adverse reaction bp 12:41 Drug: Piperacillin-Tazobactam IVPB 3.375 grams IVPB once over 60 mins; (mix in NS 100 bp mL) Route: IVPB; Infused Over: 60 mins; Site: left forearm; 13:41 Follow up: Response: No adverse reaction; IV Status: Completed infusion; IV Intake: ko1 100ml 12:42 Drug: NS 0.9% IV (30 ml/kg) 30 ml/kg IV at bolus once; Sepsis Protocol; to be given as bp a bolus over 90 minutes Route: IV; Rate: bolus; Site: left forearm; 17:07 Follow up: IV Status: Completed infusion bp 14:28 Drug: Norepinephrine IV 0.1 mcg/kg/min IV at calculated rate See Administration ko1 Instructions; (Standard concentration 4 mg / 250 mL D5W); Recommended max rate 3 mcg/kg/min; Titrate 0.05 mcg/kg/min as often as every 5 minutes to achieve goal (see titration policy); Goal parameter MAP greater than 65 mmHg. Route: IV; Rate: 5 mcg/min; Site: right wrist; 14:57 Follow up: Rate change 8 mcg/min ko1 15:15 Follow up: Rate change 15 mcg/min ko1 15:50 Follow up: BP 82 / 42; Pulse 79 bpm; Resp 15 bpm; Pulse Ox 97% ; Rate change 20 mcg/min ko1 16:31 Follow up: BP 97 / 40; Pulse 71 bpm; Resp 15 bpm; Pulse Ox 98% ; Rate change 30 mcg/min ko1 17:06 Follow up: IV Status: Infusion continued bp 04 00:24 Follow up: Response: No adverse reaction; IV Status: Infusion continued upon admission al5 10/17 18:51 Drug: EPINEPHrine (PF) IV 0.01 mcg/kg/min IV at calculated rate See Administration ko1 Instructions; Standard concentration 4 mg / 250 mL D5W; Recommended max rate 2 mcg/kg/min; Titrate 0.01 mcg/kg/min as often as every 3 minutes to achieve goal [see titration policy]; Goal parameter MAP greater than 65 mmHg. Route: IV; Rate: 0.05 mcg/kg/min; Site: left antecubital; 20:35 Follow up: Rate change 0.1 mcg/kg/min al5 19:20 Drug: NS 0.9% IV 1000 ml IV at 1000 ml once; to be given as a bolus over 60 minutes al5 Route: IV; Rate: 1000 ml; Site: right wrist; 20:19 Follow up: Response: No adverse reaction; IV Status: Completed infusion; IV Intake: al5 1000ml Disposition Summary: 10/17/24 16:32 Hospitalization Ordered Notes: Hospitalization Status: Inpatient Admission ec2 Provider: Cherelle Berry ec2 Condition: Serious(10/17/24 16:32) ec2 Problem: an acute exacerbation(10/17/24 16:32) ec2 Symptoms: have improved(10/17/24 16:32) ec2 Bed/Room Type: Standard ec2 Location: Intensive Care Unit(10/17/24 20:11) kb3 Room Assignment: 5-(10/17/24 20:11) kb3 Diagnosis - Severe sepsis with septic shock(10/17/24 16:32) ec2 - UTI/ Urinary tract infection, site not specified(10/17/24 16:32) ec2 - Pyelonephritis acute ec2 Forms: - Medication Reconciliation Form ec2 - SBAR form ec2 - Leadership Thank You Letter ec2 Critical care time excluding procedures: 13:47 Critical care time: Bedside Care: 30 minutes, Consultation: 5 minutes. Total time: 35 ec2 minutes Signatures: Dispatcher [employer] EDMS Andre Molina, RN RN Beth Eduardo RN RN ll1 Deanne Mauricio RN RN kb3 Cat Sears RN RN Guera Parry rv1 Marco Antonio Bender MD MD sp4 Ralf Leiva MD MD ec2 Kianna Jarquin RN RN al5 Corrections: (The following items were deleted from the chart) 11:49 11:49 Influenza Screen (A \T\ B)+BA.LAB.BRZ ordered. EDMS EDMS 11:49 11:49 SARS-COV-2 Antigen Rapid+I.LAB.BRZ ordered. EDMS EDMS 11:49 11:49 Abdomen Pelvis W Con+CT.RAD.BRZ ordered. EDMS EDMS 14:24 12:51 Abdomen ordered. EDMS EDMS 15:43 14:29 transferring doc ec2 ec2 16:30 14:29 [facility] ec2 ec2 16:30 14:29 Higher level of care ec2 ec2 16:30 14:29 Serious ec2 ec2 16:30 14:29 an ongoing problem ec2 ec2 16:30 14:29 have improved ec2 ec2 16:30 14:29 Severe sepsis with septic shock ec2 ec2 16:30 15:43 transferring doc ec2 ec2 16:30 15:43 UTI/ Urinary tract infection, site not specified ec2 ec2 16:30 15:43 Acute kidney failure, unspecified ec2 ec2 19:00 16:32 Intensive Care Unit ec2 rv1 19:00 16:32 ec2 rv1 20:11 19:00 [facility] ER HOLD rv1 kb3 20:11 19:00 ERHOLD- rv1 kb3
--- NOTE | 2024-10-17 15:13 | RAD REPORT ---
EXAMINATION: CT ABDOMEN AND PELVIS WITHOUT CONTRAST CLINICAL INDICATION: Male, 83 years old.ABD PAIN TECHNIQUE: CT abdomen and pelvis was performed, without IV contrast, as per department protocol. Axia l, sagittal and coronal reconstructions were obtained. One or more of the following dose reduction techniques were used: Automated exposure control, adjustment of the mA and/or kV according to the pat ient size, and/or iterative reconstruction. Unless otherwise specified, incidental findings do not require dedicated imaging follow-up. [id number]. IV CONTRAST: Not administered. COMPARISON: None FINDINGS: The lack of intravenous contrast limits the sensitivity of this exam for evaluation of solid visceral organs, vascular structures, and retroperitoneum. LOWER CHEST: Dependent atelectasis. No significant pericardial effusion. Multivessel coronary artery calcifications.Cardiomegaly. Pacemaker leads. Mild thickening distal esophagus. UPPER GI: No significant abnormality. LIVER: Benign appearing low density liver lesions. No suspicious mass. GALLBLADDER/BILE DUCTS: Cholelithiasis without CT evidence of acute cholecystitis.? PANCREAS: No mass, ductal dilation, or katlin-pancreatic fluid. SPLEEN: Mild splenomegaly. ADRENALS: No adrenal masses. KIDNEYS AND URETERS: No hydronephrosis. 6 mm stone in the upper left renal pelvis which is not obstru cting. Bilateral renal cysts. Punctate stone in the upper pole right kidney. Moderate left-sided perinephric stranding. There is also periureteric stranding. ABDOMINAL AORTA AND OTHER VESSELS: Mild atherosclerotic changes. PERITONEUM: No abnormal free fluid. No free air. LYMPH NODES: No pathologic lymphadenopathy. ABDOMINAL WALL: Unremarkable SMALL BOWEL/COLON: Small bowel has normal course and caliber. No colonic wall thickening or pericolon ic inflammatory changes. URINARY BLADDER: Bladder wall thickening. Bladder contains gas. Suprapubic catheter present. The tip of the suprapubic catheter terminates in the prostatic urethra. There is an outpouching along the superior aspect of the bladder which could be gas within a ladder diverticulum though it may be secon jennifer to a bladder ulceration. No free air or fluid. REPRODUCTIVE ORGANS: No pathologic process. MUSCULOSKELETAL: Multilevel degenerative changes in the spine. No acute fracture. ADDITIONAL FINDINGS: None. IMPRESSION: Suprapubic catheter within a thick-walled gas-containing bladder. This is concerning for infection wi th possible bladder wall ulceration though without free air or fluid to indicate fran perforation. Left-sided periureteric and renal stranding is also concerning for an ascending urinary tract infecti on and possible left-sided polynephritis. No hydronephrosis.
[2024-10-17 15:26] LABS: PT Prothrombin Time 18.5 SECONDS (9.4-12.5); PTT, Activated Partial Thromb 30.7 SECONDS (24.3-36.9); Protime INR 1.77
[2024-10-17] MEDS: HYDROCORTISONE SUC 100 MG INJ IV ONE (19:22)
--- NOTE | 2024-10-17 19:24 | P.HP ---
Certification for Inpatient Patient admitted to: Inpatient With expected LOS: >2 Midnights Patient will require the following post-hospital care: None Practitioner: I am a practitioner with admitting privileges, knowledge of patient current condition, hospital course, and medical plan of care. Services: Services provided to patient in accordance with Admission requirements found in Title 42 Section 412.3 of the Code of Federal Regulations Patient History Date of Service: 10/17/24 Reason for admission: Altered mental status; UTI History of Present Illness: Patient is an 83-year-old gentleman came to the hospital with septic shock. Patient lives by himself. He had a suprapubic catheter placed in December 2023. The family states this was because of a large prostate and multiple kidney stones. Since patient had a suprapubic catheter he has had episodes of sepsis x 3. Each 1 the family is concerned that he will not survive, but he does turn around and gets better. The family is wanting the suprapubic catheter removed. Patient had similar episodes this morning and he was brought into the emergency room. Patient was severely hypotensive and patient's workup revealed patient had a UTI with sepsis. Patient was started on Levophed, and once it reached the max dose they started epi drip as well. When I saw the patient, we also started bolusing IV fluids. Patient was given an addiitonal 1 L of IV fluids. Will give additional IV fluids at this time. Repeat lactic acid is pending as well. Patient may need bicarb as well. Patient will be admitted to the ICU. Patient also has a history of coronary artery disease and has had a stent placed recently. Patient required a pacemaker placement when he was in the hospital for an extended period and was dropping his heart rate. Family mentions that he has had a history of congestive heart failure. They do not know how well his heart is pumping as he is proceed most of his care in [place]. He is here visiting. Patient will be admitted for further evaluation. Allergies No Known Allergies Allergy (Unverified 10/17/24 18:25) Home Medications: Allopurinol 300 mg PO BEDTIME 10/18/24 Amiodarone HCl 100 mg PO DAILY 10/18/24 Apixaban [Eliquis] 2.5 mg PO BEDTIME 10/18/24 Apixaban [Eliquis] 7.5 mg PO BREAKFAST 10/18/24 Furosemide [Lasix] 20 mg PO DAILY PRN 10/18/24 Gabapentin 300 mg PO BID 10/18/24 Meclizine HCl 25 mg PO PRN PRN 10/18/24 Multivitamin [Daily Multivitamin] 1 each PO DAILY 10/18/24 Rosuvastatin Calcium 20 mg PO BEDTIME 10/18/24 Tamsulosin HCl [Flomax] 0.4 mg PO BEDTIME 10/18/24 Ubidecarenone [Co Q-10] 100 mg PO BEDTIME 10/18/24 carvediloL [Carvedilol] 6.25 mg PO BID 10/18/24 - Past Medical/Surgical History -: BPH -: Nephrolithiasis -: CAD -: Arrhythmia -: Pacemaker placement -: Suprapubic catheter placement - Family History Father Family History: Reviewed- Non-Contributory - Social History Smoking Status: Never smoker Alcohol use: No CD- Drugs: No Review of Systems 10-point ROS is otherwise unremarkable Physical Examination - Vital Signs Temperature: 98 F Blood Pressure: 90/60 Pulse: 80 Respirations: 18 Pulse Ox (%): 95 - Physical Exam General: Alert, In no apparent distress, Oriented x1, Moderate distress, Confused, Delirious HEENT: Atraumatic, PERRLA, Mucous membr. moist/pink, EOMI, Sclerae nonicteric Neck: Supple, 2+ carotid pulse no bruit, No LAD, Without JVD or thyroid abnormality Respiratory: Diminished Cardiovascular: Regular rate/rhythm, Normal S1 S2, Systolic murmur Gastrointestinal: Normal bowel sounds, Soft and benign, Non-distended, No tenderness, No rebound, No guarding Musculoskeletal: No clubbing, No swelling, No tenderness Integumentary: No rashes Neurological: Other (Abnormal gait and abnormal strength) Lymphatics: No axilla or inguinal lymphadenopathy Urinary: Suprapubic catheter - Studies Laboratory Data (last 24 hrs) 10/17/24 10/17/24 10/17/24 14:53 14:00 12:55 WBC 14.10 H Hgb 9.9 L Hct 29.8 L Plt Count 161 PT 18.5 H INR 1.77 APTT 30.7 Sodium 139 Potassium 3.5 BUN 36 H Creatinine 2.36 H Glucose 96 Total Bilirubin 1.2 H AST 23 ALT 16 Alkaline Phosphatase 127 H Microbiology Data (last 24 hrs): 10/17/24 12:55 Nasopharnyx Influenza Type A Antigen Screen - Final 10/17/24 12:55 Nasopharnyx Influenza Type B Antigen Screen - Final Assessment & Plan - Problems (Diagnosis) (1) Septic shock due to urinary tract infection Current Visit: Yes Status: Acute (2) Chronic suprapubic catheter Current Visit: Yes Status: Acute (3) History of CAD (coronary artery disease) Current Visit: Yes Status: Acute (4) History of permanent cardiac pacemaker placement Current Visit: Yes Status: Acute (5) Anemia Current Visit: Yes Status: Acute (6) Coagulopathy Current Visit: Yes Status: Acute (7) CANDICE (acute kidney injury) Current Visit: Yes Status: Acute (8) Lactic acidosis Current Visit: Yes Status: Acute (9) Leukocytosis Current Visit: Yes Status: Acute (10) Hypoalbuminemia Current Visit: Yes Status: Acute - Plan Plan: 1. Septic shock secondary to UTI in a patient with a suprapubic catheter. Patient with significant lactic acidosis. Patient given IV fluid boluses. However, patient still is hemodynamically unstable. Patient is maxed out on Levophed and the ER added epi drip. Will need consider changing this. Will continue with aggressive IV fluid boluses and will do IV hydrocortisone. Wean off the epi drip and keep on Levophed for now. Family wants us to try to remove the suprapubic catheter as patient has had 4 different episodes of sepsis since the suprapubic catheter was placed. Patient has been declining. Will consult Dr. Hutson for his input. I will get a renal ultrasound. 2. CANDICE; patient most likely related to ATN. Monitor renal function after IV hydration. Renal ultrasound to further evaluate. Will get an echocardiogram to evaluate cardiac functioning 3. CAD with prior stent placement; history of CHF unknown type-will go ahead and continue with antiplatelet therapy and statin therapy. Patient with a coagulopathy so we will monitor any signs of bleeding. Continue with echocardiogram as patient in septic shock and we need to know patient's cardiac functioning status 4. Anemia; monitor hemoglobin closely Discharge Plan: Home Plan to discharge in: Greater than 2 days - Advance Directives Does patient have a Living Will: No Does patient have a Durable POA for Healthcare: No - Code Status/Comfort Care Code Status Assessed: Yes Code Status: Full Code Critical Care: Yes Time Spent Managing PTS Care (In Minutes): 55
[2024-10-17] MEDS: NA CHLORIDE 0.9% 1,000 ML IV SCH (20:00)
[2024-10-17] MEDS ORDERED: HYDROCORTISONE SUC 100 MG INJ ONE (20:22)
[2024-10-17] MEDS ORDERED: VANCOMYCIN 1.5 GM in NA CHLORIDE 0.9% 500 ML IVPB ONE (21:00)
[2024-10-17] MEDS ORDERED: Meropenem 500 MG VIAL IV ONE (21:33)
[2024-10-17] MEDS: VASOPRESSIN 20 UNIT/ML VIAL ONE (21:42)
[2024-10-17] MEDS: SODIUM BICARB 50 MEQ/50ML VIAL ONE (21:42)
[2024-10-17] MEDS ORDERED: NA CHLORIDE 0.9% 250 ML ONE (21:59)
[2024-10-17] MEDS ORDERED: VANCOMYCIN 2 GM in NA CHLORIDE 0.9% 500 ML IVPB ONE (22:00)
[2024-10-17] MEDS ORDERED: NA CHLORIDE 0.9% 1,000 ML ONE (22:00)
[2024-10-17] MEDS: Meropenem 500 MG in NA CHLORIDE 0.9% 100 ML IV SCH (22:08)
[2024-10-17] MEDS: NOREPINEPHRINE BITARTRATE/D5W 4 MG/250 ML KIT IV ONE (22:23)
--- NOTE | 2024-10-17 22:27 | RAD REPORT ---
EXAM: Chest Single View HISTORY: central line placement Right IJ COMPARISON: Same-day FINDINGS: Right IJ approach central line placement. Tip overlies the expected location of the mid SVC. The hear t is shifted to the left which explains the slight leftward shift of the line tip. No pneumothorax. Pacemaker. IMPRESSION: Right IJ approach central line with tip likely overlying the expected location of the mid SVC. Note t hat the tip of the IJ catheter deviates slightly towards the left but this likely is the expected course of the SVC as the heart is somewhat shifted to the left. No pneumothorax.
[2024-10-17] MEDS: NA CHLORIDE 0.9% 1,000 ML IV ONE (22:30)
[2024-10-17 23:08] LABS: Band Neutrophils 2 % (0-1); Differential Total Cells Count 100; Eosinophils 1 % (0-3); Lymphocytes 4 % (15-42); Monocytes 30 % (0-10); Segmented Neutrophils 63 % (40-80)
[2024-10-17 23:09] LABS: Blood Morphology Comment NOTED (NOT SEEN); Platelet Estimate ADEQ
[2024-10-17 23:10] LABS: Anisocytosis 2+
[2024-10-17] MEDS ORDERED: EPINEPHRINE 1 MG/ML VIAL ONE (23:18)
[2024-10-17] MEDS ORDERED: D5W 250 ML IV ONE (23:19)
[2024-10-18] MEDS ORDERED: NOREPINEPHRINE BITARTRATE/D5W 4 MG/250 ML KIT IV ONE (01:00)
[2024-10-18 01:05] LABS: Absolute Lymphocytes (CBC) 2.1 K/uL (0.7-4.9); Absolute Monocytes 4.3 K/uL (0.1-1.3); Absolute Neutrophil 22.6 K/uL (1.8-8.0); Basophils % 0.1 % (0-1.3); Eosinophils % 0.1 % (0-4.4); Hematocrit 28.4 % (39.6-49.0); Lymphocytes % 7.1 % (15.3-44.8); MCH 31.7 pg (27.0-35.0); MCHC 31.5 g/dL (32.0-36.0); MCV 100.6 fL (80-100); MPV 6.9 fL (7.6-11.3); Monocytes % 14.8 % (3.3-12.3); Neutrophils % 77.9 % (41.7-73.7); Platelets 217 thou/uL (152-406); RBC Red Blood Cell Count 2.83 M/uL (4.33-5.43); Red Cell Distribution Width 22.9 % (12.1-15.2)
[2024-10-18 01:11] LABS: Anion Gap 15.3 mEq/L (5.0-15.0); Potassium 3.3 mEq/L (3.5-5.1)
[2024-10-18] MEDS: NOREPINEPHRINE 4 MG in D5W 250 ML IV SCH (01:11)
[2024-10-18] MEDS: VASOPRESSIN 80 UNIT in NA CHLORIDE 0.9% 250 ML IV SCH (01:12)
[2024-10-18] MEDS: KCL 20 MEQ/100 mL IVPB 100 ML IV SCH (02:00)
[2024-10-18] MEDS: NA CHLORIDE 0.9% 250 ML ONE ×2 (02:21→04:06)
[2024-10-18 02:34] LABS: Band Neutrophils 36 % (0-1); Differential Total Cells Count 100; Lymphocytes 8 % (15-42); Metamyelocytes 7 % (0-0); Monocytes 5 % (0-10); Reactive Lymphocytes 4 %; Segmented Neutrophils 40 % (40-80)
[2024-10-18 02:35] LABS: Anisocytosis 2+; Blood Morphology Comment NOTED (NOT SEEN); Platelet Estimate ADEQ
[2024-10-18] MEDS: VANCOMYCIN 2 GM in NA CHLORIDE 0.9% 500 ML IVPB ONE (02:58)
[2024-10-18] MEDS ORDERED: NOREPINEPHRINE 4 MG/4 ML VIAL ONE (03:01)
[2024-10-18] MEDS ORDERED: D5W 250 ML IV ONE (03:03)
--- NOTE | 2024-10-18 05:35 | RAD REPORT ---
XR PELVIS 1-2 VIEWS CLINICAL STATEMENT: Suprapubic catheter COMPARISON: None TECHNIQUE: 3 frontal view of the pelvis was obtained following Gastrografin contrast administration v ia the suprapubic catheter. FINDINGS: The first image demonstrates a contrast-filled suprapubic catheter terminates in the distal urethra. Small amount of extraluminal contrast at the level of the diaphragmatic urethra could be within the urethra versus external to the patient. The last image demonstrates interval retraction of the catheter into the urinary bladder. The contras t opacified urinary bladder is incompletely distended and demonstrates multiple diverticula. There is contrast opacification of entire course of the urethra. There is focal widening of contrast enhanc ed area at diaphragmatic urethra; underlying injury or ulceration cannot be excluded. There is trace contrast filling of bilateral distal ureters. Bones are intact. Multiple small phleboliths in pelvis. IMPRESSION: 1. Urinary bladder diverticulosis. 2. Focal widening of contrast enhanced diaphragmatic urethra; underlying injury or ulceration canno t be excluded. Electronically signed by: Claudette Varghese MD 10/17/2024 11:58 PM [facility] Due to temporary technical issues with the PACS/[facility] reporting system, reports are being rabia d by the in-house radiologist without review as a courtesy to ensure prompt reporting the interpreting radiologist is fully responsible for the content of the report. Transcribed Date/Time: 10/18/2024 5:34 AM
[2024-10-18] MEDS: NOREPINEPHRINE 16 MG in D5W 250 ML IV SCH (07:16)
--- NOTE | 2024-10-18 08:12 | P.CNS ---
Date of Consult: 10/18/24 Reason for Consult: Septic shock Chief Complaint: Altered mental status; UTI History of Present Illness: Patient is 83 years of age age admitted with septic shock secondary to urinary tract infection he has a suprapubic catheter from his previous history of ne phrolithiasis patient required multiple vasopressors IV fluid he is currently alert responsive abdominal pain has improved denies any shortness of breath I was consulted by Dr. Estrada on the last night for management of his septic shock Allergies No Known Allergies Allergy (Unverified 10/17/24 18:25) - Past Medical/Surgical History -: BPH -: Nephrolithiasis -: CAD -: Arrhythmia -: Pacemaker placement -: Suprapubic catheter placement - Family History Father Family History: Reviewed- Non-Contributory - Social History Smoking Status: Current every day smoker Alcohol use: No CD- Drugs: No Place of Residence: Home Review of Systems 10-point ROS is otherwise unremarkable Physical Examination Temp Pulse Resp BP Pulse Ox 97.1 F 70 19 123/69 100 10/18/24 06:00 10/18/24 06:30 10/18/24 06:30 10/18/24 06:30 10/18/24 06:30 General: Alert, In no apparent distress, Oriented x3 Respiratory: Clear to auscultation bilaterally, Diminished Cardiovascular: No edema, Regular rate/rhythm, Normal S1 S2 Gastrointestinal: Normal bowel sounds, Soft and benign, Non-distended Laboratory Data (last 24 hrs) 10/17/24 10/17/24 10/17/24 14:53 14:00 12:55 WBC 14.10 H Hgb 9.9 L Hct 29.8 L Plt Count 161 PT 18.5 H INR 1.77 APTT 30.7 Sodium 139 Potassium 3.5 BUN 36 H Creatinine 2.36 H Glucose 96 Total Bilirubin 1.2 H AST 23 ALT 16 Alkaline Phosphatase 127 H - Problems (1) Septic shock Current Visit: Yes Status: Acute Plan: Patient is 83 years of age admitted with septic shock secondary to urinary tract infection he has a suprapubic catheter patient has chronic renal failure mildly anemic. CT scan below Suprapubic catheter within a thick-walled gas-containing bladder. This is concerning for infection with possible bladder wall ulceration though without free air or fluid to indicate fran perforation. Left-sided periureteric and renal stranding is also concerning for an ascending urinary tract infection and possible left-sided polynephritis. No hydronephrosis. Agree with vancomycin meropenem agree with hydrocortisone IV fluids oxygenation satisfactory continue to wean off his vasopressors bolus with 1 to 2 L chest x-ray is clear oxygenation satisfactory he will be able to tolerate more IV fluid boluses
[2024-10-18] MEDS: ALBUTEROL 2.5 MG/3 ML NEB SOL NEB SCH (08:24)
[2024-10-18] MEDS: IPRATROPIUM BROM 0.5MG/2.5ML NEB SCH (08:24)
[2024-10-18] MEDS: HYDROCORTISONE SUC 100 MG INJ IV SCH (09:03)
[2024-10-18 09:08] LABS: Absolute Neutrophil 25.6 K/uL (1.8-8.0); Basophils % 0.2 % (0-1.3); Eosinophils % 0.1 % (0-4.4); Hematocrit 33.4 % (39.6-49.0); Hemoglobin 10.8 g/dL (13.6-17.9); Lymphocytes % 3.1 % (15.3-44.8); MCH 31.5 pg (27.0-35.0); MCHC 32.3 g/dL (32.0-36.0); MCV 97.6 fL (80-100); Monocytes % 15.8 % (3.3-12.3); Neutrophils % 80.8 % (41.7-73.7); Platelets 198 thou/uL (152-406); RBC Red Blood Cell Count 3.42 M/uL (4.33-5.43); Red Cell Distribution Width 21.4 % (12.1-15.2)
[2024-10-18 09:22] LABS: Albumin 2.1 g/dL (3.4-5.0); Albumin/Globulin Ratio 0.5 (1.1-1.8); Anion Gap 12.7 mEq/L (5.0-15.0); Bilirubin Total 0.9 mg/dL (0.2-1.0); Globulin 4.3 g/dL (2.3-3.5); Potassium 3.7 mEq/L (3.5-5.1); Protein, Total 6.4 g/dL (6.4-8.2)
[2024-10-18 11:49] LABS: Anisocytosis 2+; Band Neutrophils 20 % (0-1); Blood Morphology Comment NOTED (NOT SEEN); Differential Total Cells Count 100; Lymphocytes 3 % (15-42); Metamyelocytes 1 % (0-0); Monocytes 15 % (0-10); Platelet Estimate ADEQ; Platelets Clumped FEW; Segmented Neutrophils 61 % (40-80)
[2024-10-18] MEDS: ALBUMIN HUMAN 25% 100 ML IV ONE ×2 (12:11→18:21)
[2024-10-18] MEDS: NA CHLORIDE 0.9% 1,000 ML IV ONE (12:11)
--- NOTE | 2024-10-18 12:13 | EKG ---
Test Date: 2024-10-17 Test Time: 12:11:26 Senior Devops Engineer: BRIE MEASUREMENT RESULTS: Intervals: Rate: 105 UT: QRSD: 100 QT: 400 QTc: 528 [place]: P: UT: QRS: 90 T: -61 INTERPRETIVE STATEMENTS: Atrial fibrillation ST & T wave abnormality, consider inferolateral ischemia or digitalis effect Abnormal ECG No previous ECG available for comparison Electronically Signed On 10-18-24 12:12:09 INSPECTOR PUBLICATIONS by Shaheen Hudson
[2024-10-18] MEDS: SODIUM BICARB 50 MEQ/50ML VIAL IV ONE (12:16)
--- NOTE | 2024-10-18 14:17 | ECHO ---
HEIGHT: 6 ft 0 in WEIGHT: 181 lb 15.866 oz DATE OF STUDY: 10/18/[address]: Cherelle Berry MD 2-DIMENSIONAL: YES M.MODE: YES DOPPLER: YES COLOR FLOW: YES TDS: NO PORTABLE: YES DEFINITY: NO BUBBLE STUDY: NO DIAGNOSIS: SHOCK CARDIAC HISTORY: CATHERIZATION: YES SURGERY: NO PROSTHETIC VALVE: NO PACEMAKER: YES MEASUREMENTS (cm) DIASTOLIC (NORMALS) SYSTOLIC (NORMALS) IVSd 1.0 (0.6-1.2) LA Diam 4.2 (1.9-4.0) LVEF 30-35% LVIDd 5.0 (3.5-5.7) LVIDs 4.0 (2.0-3.5) %FS 19% LVPWd 1.0 (0.6-1.2) Ao Diam 3.1 (2.0-3.7) 2 DIMENSIONAL ASSESSMENT: RIGHT ATRIUM: SEVERELY ENLARGED LEFT ATRIUM: MILDLY DILATED RIGHT VENTRICLE: MILDLY DILATED, PACEMAKER LEFT VENTRICLE: MILDLY DILATED TRICUSPID VALVE: MODERATE-SEVERE TRICUSPID REGURGITATION MITRAL VALVE: MILD MITRAL REGURGITATION PULMONIC VALVE: NORMAL AORTIC VALVE: CALCIFIED RIGHT CORONARY LEAFLET PERICARDIAL EFFUSION: NONE AORTIC ROOT: NORMAL LEFT VENTRICULAR WALL MOTION: SEVERE GLOBAL HYPOKINESIS. DOPPLER/COLOR FLOW: DIASTOLIC DYSFUNCTION. COMMENTS: 1. SEVERELY REDUCED LEFT VENTRICULAR SYSTOLIC FUNCTION, EJECTION FRACTION 30-35%, SEVERE GLOBAL HYPOKINESIS. 2. DIASTOLIC DYSFUNCTION. 3. MODERATE TO SEVERE TRICUSPID REGURGITATION. 4. MODERATELY ELEVATED FILLING PRESSURE (RIGHT ATRIAL PRESSURE 10-15mmHg) 5. MODERATE PULMONARY HYPOKINESIS (RIGHT VENTRICULAR SYSTOLIC PRESSURE 50-55mmHg. TECHNOLOGIST: MAUDE SEGOVIA
[2024-10-18] MEDS: NA CHLORIDE 0.9% 500 ML IV ONE (15:51)
[2024-10-18] MEDS: GABAPENTIN 300 MG CAP PO SCH (16:32)
--- NOTE | 2024-10-18 18:08 | P.CNS ---
Date of Consult: 10/18/24 Reason for Consult: Complicated UTI with septic shock Chief Complaint: Altered mental status; UTI History of Present Illness: 83-year-old gentleman with CAD, arrhythmia with pacemaker, and h/o BPH with obstruction and LUTS, history of numerous bladder calculi s/p cystoslitholapaxy in [place] with suprapubic catheter placed in 12/2023, in the setting of a history of nephrolithiasis. Apparently, since the suprapubic catheter was placed, he has had several episodes of complicated infections with sepsis, and the family now one of the suprapubic catheter removed. The patient expresses being scheduled for urodynamics evaluation in November in [place], where he is from. It is not clear why the suprapubic catheter was placed prior to the urodynamics being performed other than potentially because of obstruction and patient discomfort. The patient has had some issues with leakage around the suprapubic catheter insertion site, and they have increased the size of the suprapubic catheter, now up to 22 [place]. A home care nurse exchanged his catheter recently before he became ill and was subsequently seen in the emergency department. There, they changed the suprapubic catheter, and he has been managed in the ICU with multiple antimicrobials and pressors due to shock. 10/17/2024 to 10/18/2024 laboratory analyses: WBC 14.1 now 31.7, hemoglobin 10.8, platelets 198, INR 1.77, lactate 2.6-6 0.3-4 0.2-2.7, creatinine now 2.92 with EGFR 21, bicarb 19, anion gap 12.7 10/17/2024 CT abdomen and pelvis without contrast findings: No adrenal masses. No hydronephrosis. 6 mm stone upper left renal pelvis which is not obstructing. Bilateral renal cysts. Punctate stone in the upper pole right kidney. Moderate left-sided perinephric stranding and periureteral stranding. No lymphadenopathy. Bladder wall thickened with gas. Suprapubic catheter present and the tip of the catheter was in the prostatic urethra. An outpouching along the superior aspect of the bladder was concerning for either diverticulum or bladder ulceration, but there was no pathologic free air or fluid. Impression: Suprapubic catheter with a thick walled gas containing bladder concerning for infectious etiology with possible bladder wall ulceration. Left sided [place] ureteric and renal stranding concerning for ascending urinary tract infection and possible pyelonephritis without hydronephrosis. Past medical history: As above Past surgical history: As above Social history: Denies history of smoking Examination: Alert, awake, oriented in no acute distress No dyspnea or sign of respiratory distress Comfortable and well-appearing Abdomen soft and nontender Suprapubic catheter draining cloudy old blood containing urine. Suprapubic catheter manipulation, bladder irrigation, urethral Ballard catheter placement and irrigation procedure note: I began by cleansing around the suprapubic catheter insertion site with soap and water before deflating the suprapubic catheter balloon and retracting the catheter until the balloon site was visible. I then reinserted the catheter a few centimeters before slowly inflating the balloon and ensuring the catheter situated within the bladder lumen. I then utilized a catheter tip syringe and normal saline irrigation to irrigate through the suprapubic catheter, but all of the fluid promptly emanated from the urethra uncontrollably. As a result, since it was not clear whether the bladder was markedly contracted or if potentially the suprapubic catheter was somehow not an ideal position, I prepped his genitalia with Betadine and draped in standard fashion before passing an 18 Syriac coud tipped catheter via his urethra into his bladder with ease. I inflated the balloon slowly hubbed within his bladder before situating the catheter balloon at the putative bladder neck. Of note, significant enlargement of the prostate was suspected because only a few centimeters of the catheter from the hub was allowed to emanate from his meatus. I then irrigated via the suprapubic catheter again, and this time it irrigated much more appropriately, instilling 60 cc an aspirating back 60 cc. I then flushed a degree of air out of his bladder and then was able to irrigate and demonstrate the irrigant fluid to come out of the urethral Ballard catheter suggesting continuity of the system. As a result, I irrigated the urethral Ballard catheter similarly to demonstrate continuity and E flux of fluid out of the suprapubic catheter. Both catheters were secured, the suprapubic catheter via a cath secure and the urethral Ballard catheter via tape to the tubing. Both catheters were placed to gravity drainage. The patient tolerated the procedure reasonably well and with no obvious complications. 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 -As an inpatient, standard management directed at his sepsis and shock should be undertaken. He has been maximally drained at this point; so once he improves clinically, the urethral Ballard catheter may be removed prior to discharge. The suprapubic catheter should be left to gravity drainage. -Care for the catheter insertion site by cleansing with hydrogen peroxide or soap and water, and afterward, applying Neosporin/bacitracin to the site. -Outpatient evaluation will be mandatory to assess the source of his recurrent UTIs, which could be potentially due to and enterovesical fistula or other anatomic finding, potentially a foreign body remnant in his bladder. -He would likely benefit from continuing on a prophylactic course of antimicrobials, once the treatment course of antimicrobials is completed to minimize the risk of reinfection while he remains out of state. -He has a urologist and has scheduled follow-up in early November in [place]. As such, it would make most sense for him to follow-up there and undergo cystoscopic evaluation and additional imaging or investigation as necessary to determine the source of his recurrent UTIs and complicating infections. While I would be happy to see him here, he will not be here long enough likely to complete what ever surgical therapy is planned to manage the source of his recurrent infections and his obstruction due to BPH. -I would not remove the suprapubic catheter in the meantime, and since I was told it was exchanged in the emergency department, as we now know it is in good position, it should be a reasonable method of managing any obstructive uropathy. Allergies No Known Allergies Allergy (Unverified 10/17/24 18:25) Home medications list reviewed: Yes Home Medications: Allopurinol 300 mg PO BEDTIME 10/18/24 Amiodarone HCl 100 mg PO DAILY 10/18/24 Apixaban [Eliquis] 2.5 mg PO BEDTIME 10/18/24 Apixaban [Eliquis] 7.5 mg PO BREAKFAST 10/18/24 Furosemide [Lasix] 20 mg PO DAILY PRN 10/18/24 Gabapentin 300 mg PO BID 10/18/24 Meclizine HCl 25 mg PO PRN PRN 10/18/24 Multivitamin [Daily Multivitamin] 1 each PO DAILY 10/18/24 Rosuvastatin Calcium 20 mg PO BEDTIME 10/18/24 Tamsulosin HCl [Flomax] 0.4 mg PO BEDTIME 10/18/24 Ubidecarenone [Co Q-10] 100 mg PO BEDTIME 10/18/24 carvediloL [Carvedilol] 6.25 mg PO BID 10/18/24 - Past Medical/Surgical History Diabetic: No -: BPH -: Nephrolithiasis -: CAD -: Arrhythmia -: Pacemaker placement -: Suprapubic catheter placement - Family History Father Family History: Reviewed- Non-Contributory - Social History Smoking Status: Current every day smoker Alcohol use: No CD- Drugs: No Place of Residence: Home Physical Examination Temp Pulse Resp BP Pulse Ox 97.1 F 78 23 H 98/61 100 10/18/24 06:00 10/18/24 15:15 10/18/24 15:15 10/18/24 15:15 10/18/24 15:15 - Problems (1) Enlarged prostate with urinary obstruction Current Visit: Yes Status: Acute (2) Recurrent UTI Current Visit: Yes Status: Acute (3) Complicated UTI (urinary tract infection) Current Visit: Yes Status: Acute (4) Pyelonephritis of left kidney Current Visit: Yes Status: Acute (5) Chronic suprapubic catheter Current Visit: Yes Status: Acute (6) Septic shock due to urinary tract infection Current Visit: Yes Status: Acute Conclusions/Impression: see A&P in HPI Critical Care: No Time Spent Managing Pts care (In Minutes): 60
[2024-10-18] MEDS: ACETAMINOPHEN 325 MG TABLET PO ONE (21:45)
--- NOTE | 2024-10-19 00:33 | P.PN ---
Subjective Date of Service: 10/18/24 Subjective: Improving Patient is clinically doing much better. Remains on Levophed. However, were aggressively try to wean him off. Will start physical therapy in a.m.. Continue with aggressive IV hydration. Echocardiogram pending. SPC changed over in ER and appreciate Urology reccomendations. Review of Systems 10-point ROS is otherwise unremarkable Physical Examination - Vital Signs Temperature: 98 F Blood Pressure: 90/60 Pulse: 80 Respirations: 18 Pulse Ox (%): 95 - Physical Exam General: Alert, In no apparent distress, Oriented x3 HEENT: Atraumatic, Normocephalic Neck: Supple, 2+ carotid pulse no bruit Respiratory: Clear to auscultation bilaterally, Normal air movement Cardiovascular: Regular rate/rhythm, Normal S1 S2, Systolic murmur Gastrointestinal: Normal bowel sounds, Soft and benign, Non-distended, No rebound, No guarding Musculoskeletal: No clubbing, No swelling Neurological: Other ( No focal deficits) Urinary: Suprapubic catheter Assessment & Plan - Problems (Diagnosis) (1) Septic shock due to urinary tract infection Current Visit: Yes Status: Acute (2) Chronic suprapubic catheter Current Visit: Yes Status: Acute (3) History of CAD (coronary artery disease) Current Visit: Yes Status: Acute (4) History of permanent cardiac pacemaker placement Current Visit: Yes Status: Acute (5) Anemia Current Visit: Yes Status: Acute (6) Coagulopathy Current Visit: Yes Status: Acute (7) CANDICE (acute kidney injury) Current Visit: Yes Status: Acute (8) Lactic acidosis Current Visit: Yes Status: Acute (9) Leukocytosis Current Visit: Yes Status: Acute (10) Hypoalbuminemia Current Visit: Yes Status: Acute - Plan Plan: 1. Septic shock secondary to UTI in a patient with a suprapubic catheter. Patient with significant lactic acidosis that is improved. Patient given IV fluid boluses. However, patient still is hemodynamically unstable; weaning off of vasopressors at this time. Patient is off of epi drip and we are off of vasopressin. Patient is currently on Levophed. Will continue with IV fluid boluses and will do IV hydrocortisone. Wean off the Levophed for now. Family wants us to try to permanently replace the suprapubic catheter. At this time we will remove it. Patient has had 4 different episodes of sepsis since he started using the suprapubic catheter. Patient has been declining per family. Will consult Dr. Hutson for his input. I will get a renal ultrasound. 2. CANDICE; patient most likely related to ATN. Monitor renal function after IV hydration. Renal ultrasound to further evaluate. Echocardiogram pending 3. CAD with prior stent placement; history of CHF unknown type-will go ahead and continue with antiplatelet therapy and statin therapy. Patient with a coagulopathy so we will monitor any signs of bleeding. Continue with echocardiogram as patient in septic shock and we need to know patient's cardiac functioning status 4. Anemia; monitor hemoglobin closely 5. GI/DVT prophylaxis Discharge Plan: Home Plan to discharge in: Greater than 2 days - Advance Directives Does patient have a Living Will: No Does patient have a Durable POA for Healthcare: No - Code Status/Comfort Care Code Status: Full Code Critical Care: Yes Time Spent Managing PTS Care (In Minutes): 40
--- NOTE | 2024-10-19 00:41 | P.PN ---
Date of Service: 10/19/24 Subjective Patient was weaned off Levophed. Patient is clinically improving. Plan to work with physical therapy in the morning. If patient does well with physical therapy then anticipate discharge over the next 48 hours. Patient wants to go home before the weekend. However, it totally depends on what his strength level is and how he is responding to his treatment for his UTI with septic shock. Appreciate absence management consultant's assistance in patient's care. Physical Examination - Vital Signs reviewed - Physical Exam General: Alert, In no apparent distress, Oriented x3 Respiratory: Clear to auscultation bilaterally, Normal air movement Cardiovascular: Regular rate/rhythm, Normal S1 S2, Systolic murmur Gastrointestinal: Normal bowel sounds, Soft and benign, Non-distended, No rebound, No guarding Musculoskeletal: No clubbing, No swelling Neurological: Other ( No focal deficits) Urinary: Suprapubic catheter/ Ballard catheter Assessment & Plan - Problems (Diagnosis) (1) Septic shock due to urinary tract infection Current Visit: Yes Status: Acute (2) Chronic suprapubic catheter Current Visit: Yes Status: Acute (3) History of CAD (coronary artery disease) Current Visit: Yes Status: Acute (4) History of permanent cardiac pacemaker placement Current Visit: Yes Status: Acute (5) Anemia Current Visit: Yes Status: Acute (6) Coagulopathy Current Visit: Yes Status: Acute (7) CANDICE (acute kidney injury) Current Visit: Yes Status: Acute (8) Lactic acidosis Current Visit: Yes Status: Acute (9) Leukocytosis Current Visit: Yes Status: Acute (10) Hypoalbuminemia Current Visit: Yes Status: Acute - Plan Continue with plan of care as mentioned below: 1. Septic shock secondary to UTI in a patient with a suprapubic catheter. Patient with significant lactic acidosis that is improved. Patient given IV fluid boluses. However, patient still is hemodynamically improved; weaned off Levophed today. Patient was on multiple vasopressors and we have been able to wean them all all. Patient will downgrade to medical surgical floor in the morning. Will start physical therapy. Get patient out of bed and ambulate. Hopefully, we can start this in a.m.. 2. CANDICE; patient most likely related to ATN. Monitor renal function after IV hydration. Renal ultrasound to further evaluate. Echocardiogram with EF of 40- 45%; renal function is continuing to improve. 3. CAD with prior stent placement; history of CHF unknown type-will go ahead and continue with antiplatelet therapy and statin therapy. Patient with a coagulopathy so we will monitor any signs of bleeding. Continue with echocardiogram as patient in septic shock and we need to know patient's cardiac functioning status. Troponins were elevated. Cardiology may want to do coronary intervention prior to discharging. Troponins continue to improve. 4. Anemia; monitor hemoglobin closely 5. GI/DVT prophylaxis Discharge Plan: Home Plan to discharge in: Greater than 2 days - Advance Directives Does patient have a Living Will: No Does patient have a Durable POA for Healthcare: No - Code Status/Comfort Care Code Status: Full Code Critical Care: Yes Time Spent Managing PTS Care (In Minutes): 30
[2024-10-19 06:05] LABS: Absolute Lymphocytes (CBC) 0.6 K/uL (0.7-4.9); Absolute Monocytes 2.3 K/uL (0.1-1.3); Absolute Neutrophil 11.8 K/uL (1.8-8.0); Basophils % 0.2 % (0-1.3); Eosinophils % 0.1 % (0-4.4); Hematocrit 26.6 % (39.6-49.0); Lymphocytes % 4.2 % (15.3-44.8); MCH 32.5 pg (27.0-35.0); MCHC 33.9 g/dL (32.0-36.0); MCV 95.9 fL (80-100); MPV 7.6 fL (7.6-11.3); Monocytes % 15.6 % (3.3-12.3); Neutrophils % 79.9 % (41.7-73.7); Platelets 116 thou/uL (152-406); RBC Red Blood Cell Count 2.78 M/uL (4.33-5.43); Red Cell Distribution Width 21.5 % (12.1-15.2)
[2024-10-19 06:46] LABS: Albumin 2.2 g/dL (3.4-5.0); Albumin/Globulin Ratio 0.6 (1.1-1.8); Anion Gap 11.6 mEq/L (5.0-15.0); Bilirubin Total 0.6 mg/dL (0.2-1.0); Globulin 3.7 g/dL (2.3-3.5); Magnesium 1.7 mg/dL (1.6-2.4); Phosphorus 3.8 mg/dL (2.5-4.9); Potassium 3.6 mEq/L (3.5-5.1); Protein, Total 5.9 g/dL (6.4-8.2)
[2024-10-19 06:51] LABS: Troponin High Sensitivity 4578.8 pg/mL (<58.9)
[2024-10-19] MEDS: ASPIRIN EC 81 MG TAB PO SCH (09:03)
--- NOTE | 2024-10-19 09:21 | P.CNS ---
Date of Consult: 10/19/24 Chief Complaint: Altered mental status; UTI History of Present Illness: Patient with PMH of CAD s/p stents, atrial fibrillation, SSS s/p pacemaker and heart failure presented with infected suprapubic catheter and sepsis, cardiology consulted for elevated troponin, patient denies chest pain, no palpitations, no syncope. Allergies No Known Allergies Allergy (Unverified 10/17/24 18:25) Home medications list reviewed: Yes Home Medications: Allopurinol 300 mg PO BEDTIME 10/18/24 Amiodarone HCl 100 mg PO DAILY 10/18/24 Apixaban [Eliquis] 2.5 mg PO BEDTIME 10/18/24 Apixaban [Eliquis] 7.5 mg PO BREAKFAST 10/18/24 Furosemide [Lasix] 20 mg PO DAILY PRN 10/18/24 Gabapentin 300 mg PO BID 10/18/24 Meclizine HCl 25 mg PO PRN PRN 10/18/24 Multivitamin [Daily Multivitamin] 1 each PO DAILY 10/18/24 Rosuvastatin Calcium 20 mg PO BEDTIME 10/18/24 Tamsulosin HCl [Flomax] 0.4 mg PO BEDTIME 10/18/24 Ubidecarenone [Co Q-10] 100 mg PO BEDTIME 10/18/24 carvediloL [Carvedilol] 6.25 mg PO BID 10/18/24 - Past Medical/Surgical History Diabetic: No -: BPH -: Nephrolithiasis -: CAD -: Arrhythmia -: Pacemaker placement -: Suprapubic catheter placement - Family History Father Family History: Reviewed- Non-Contributory - Social History Smoking Status: Current every day smoker Alcohol use: No CD- Drugs: No Place of Residence: Home Review of Systems 10-point ROS is otherwise unremarkable Physical Examination Temp Pulse Resp BP Pulse Ox 98 F 76 21 H 107/88 100 10/19/24 00:39 10/19/24 06:45 10/19/24 06:45 10/19/24 06:45 10/19/24 06:45 General: Alert, In no apparent distress HEENT: Atraumatic, PERRLA, Mucous membr. moist/pink, EOMI, Sclerae nonicteric Neck: Supple, 2+ carotid pulse no bruit, No LAD, Without JVD or thyroid abnormality Respiratory: Clear to auscultation bilaterally, Normal air movement Cardiovascular: Regular rate/rhythm, Normal S1 S2 Gastrointestinal: Normal bowel sounds, No tenderness Musculoskeletal: No tenderness Integumentary: No rashes Neurological: Normal gait, Normal speech, Normal tone, Normal affect Lymphatics: No axilla or inguinal lymphadenopathy - Problems (1) NSTEMI (non-ST elevated myocardial infarction) Current Visit: Yes Status: Acute Plan: continue to trend cardiac enzymes ASA 81 mg daily Heparin drip can be type 1 vs 2 as patient is septic and still on pressors to help BP further management will be decided depending on hospital course. (2) Chronic combined systolic and diastolic heart failure Current Visit: Yes Status: Acute Plan: Patient is currently getting IV fluids due to sepsis, continue support and will monitor volume status closely (3) Atrial fibrillation Current Visit: Yes Status: Acute Plan: continue amiodarone 100 mg daily heparin drip for anticoagulation.
[2024-10-19] MEDS: HEPARIN/D5W 25,000 UNIT/500 ML BAG IV SCH (09:33)
[2024-10-19 11:26] LABS: Band Neutrophils 14 % (0-1); Differential Total Cells Count 100; Lymphocytes 4 % (15-42); Monocytes 15 % (0-10); Segmented Neutrophils 70 % (40-80)
[2024-10-19 11:27] LABS: Anisocytosis 1+; Blood Morphology Comment NOTED (NOT SEEN); Platelet Estimate DECR
[2024-10-19] MEDS: ACETAMINOPHEN 500 MG TAB PO PRN (20:51)
[2024-10-19] MEDS: MAGNES/ALUMIN/SIMET 30ML UCUP PO PRN (23:41)
--- NOTE | 2024-10-20 05:08 | P.PN ---
Date of Service: 10/20/24 Subjective Patient is doing better. Patient was weaned off of the vasopressors. Plan to advance diet as tolerated. Appreciate Cardiology input. Will start physical therapy as well. Physical Examination - Vital Signs reviewed - Physical Exam General: Alert, In no apparent distress, Oriented x3 Respiratory: Clear to auscultation bilaterally, Normal air movement Cardiovascular: Regular rate/rhythm, Normal S1 S2, Systolic murmur Gastrointestinal: Normal bowel sounds, Soft and benign, Non-distended, No rebound, No guarding Musculoskeletal: No clubbing, No swelling Neurological: Other (No focal deficits) Urinary: Suprapubic catheter/ Ballard catheter Assessment & Plan - Problems (Diagnosis) (1) Septic shock due to urinary tract infection Current Visit: Yes Status: Acute (2) Chronic suprapubic catheter Current Visit: Yes Status: Acute (3) History of CAD (coronary artery disease) Current Visit: Yes Status: Acute (4) History of permanent cardiac pacemaker placement Current Visit: Yes Status: Acute (5) Anemia Current Visit: Yes Status: Acute (6) Coagulopathy Current Visit: Yes Status: Acute (7) CANDICE (acute kidney injury) Current Visit: Yes Status: Acute (8) Lactic acidosis Current Visit: Yes Status: Acute (9) Leukocytosis Current Visit: Yes Status: Acute (10) Hypoalbuminemia Current Visit: Yes Status: Acute - Plan Continue with plan of care as mentioned below: 1. Septic shock secondary to UTI in a patient with a suprapubic catheter. Patient with significant lactic acidosis that is improved. Patient given IV fluid boluses. However, patient still is hemodynamically improved; weaned off Levophed today. Patient was on multiple vasopressors and we have been able to wean them all all. Patient will downgrade to medical surgical floor in the morning if patient continues to improve. Will start physical therapy. Get patient out of bed and ambulate. Hopefully, we can start this in a.m.. 2. CANDICE; patient most likely related to ATN. Monitor renal function after IV hydration. Renal ultrasound to further evaluate. Renal function is continuing to improve. 3. CAD with prior stent placement; history of CHF unknown type-will go ahead and continue with antiplatelet therapy and statin therapy. Patient with a coagulopathy so we will monitor any signs of bleeding. Continue with echocardiogram as patient in septic shock and we need to know patient's cardiac functioning status. Troponins were elevated. Cardiology may want to do coronary intervention prior to discharging. Troponins continue to improve. 4. Anemia; monitor hemoglobin closely 5. GI/DVT prophylaxis Discharge Plan: Home Plan to discharge in: Greater than 2 days - Advance Directives Does patient have a Living Will: No Does patient have a Durable POA for Healthcare: No - Code Status/Comfort Care Code Status: Full Code Critical Care: Yes Time Spent Managing PTS Care (In Minutes): 30
[2024-10-20 06:21] LABS: Anion Gap 10.3 mEq/L (5.0-15.0); Magnesium 1.9 mg/dL (1.6-2.4); Phosphorus 3.4 mg/dL (2.5-4.9); Potassium 3.3 mEq/L (3.5-5.1)
[2024-10-20 07:43] LABS: Absolute Lymphocytes (CBC) 0.7 K/uL (0.7-4.9); Absolute Monocytes 0.6 K/uL (0.1-1.3); Absolute Neutrophil 7.6 K/uL (1.8-8.0); Basophils % 0.1 % (0-1.3); Hematocrit 28.8 % (39.6-49.0); Hemoglobin 9.5 g/dL (13.6-17.9); Lymphocytes % 7.5 % (15.3-44.8); MCH 32.1 pg (27.0-35.0); MCV 97.4 fL (80-100); MPV 7.7 fL (7.6-11.3); Monocytes % 6.8 % (3.3-12.3); Neutrophils % 85.6 % (41.7-73.7); Nucleated Red Blood Cells % 0.3 % (0-0); Platelets 131 thou/uL (152-406); RBC Red Blood Cell Count 2.96 M/uL (4.33-5.43); Red Cell Distribution Width 21.6 % (12.1-15.2)
--- NOTE | 2024-10-20 09:05 | P.PN ---
Subjective Date of Service: 10/20/24 Chief Complaint: Altered mental status; UTI Subjective: No new changes, No C/O voiced, Tolerating diet, Ambulating, Improving Review of Systems 10-point ROS is otherwise unremarkable Physical Examination - Vital Signs Temperature: 97.6 F Blood Pressure: 138/96 Pulse: 81 Respirations: 20 Pulse Ox (%): 98 - Physical Exam General: Alert, In no apparent distress HEENT: Atraumatic, PERRLA, EOMI Neck: Supple, JVD not distended Respiratory: Clear to auscultation bilaterally, Normal air movement Cardiovascular: Regular rate/rhythm, Normal S1 S2 Gastrointestinal: Normal bowel sounds, No tenderness Musculoskeletal: No tenderness Integumentary: No rashes Neurological: Normal speech, Normal tone, Normal affect Lymphatics: No axilla or inguinal lymphadenopathy - Studies Medications List Reviewed: Yes Assessment And Plan - Current Problems (Diagnosis) (1) NSTEMI (non-ST elevated myocardial infarction) Current Visit: Yes Status: Acute Plan: Cardiac enzymes are trending down ASA 81 mg daily continue Heparin drip Patient will need coronary angiogram to check on his prior stents, with his current condition of sepsis and suprapubic catheter will make things complicated, he is better now, off pressors on borad spectrum IV abx, advise to continue current treatment and we will consider coronary angiogram Thursday keep NPO Thursday night. (2) Chronic combined systolic and diastolic heart failure Current Visit: Yes Status: Acute Plan: Patient is currently getting IV fluids due to sepsis, patient got IV fluids due to spetic shock would recommend starting IV diuresis with Lasix 40 mg IV BID and monitor his input and output and kidney function closely. (3) Atrial fibrillation Current Visit: Yes Status: Acute Plan: continue amiodarone 100 mg daily heparin drip for anticoagulation.
[2024-10-20] MEDS ORDERED: SODIUM CHLORIDE 0.9% 10ML INJ IV PRN (11:14)
[2024-10-20] MEDS: PANTOPRAZOLE 40 MG INJ IVP ONE (11:30)
--- NOTE | 2024-10-20 12:06 | RAD REPORT ---
Exam:Abdomen 1 View (KUB) Clinical history: Abdominal pain FINDINGS: The stomach is moderately to markedly dilated Remainder of the bowel gas pattern unremarkable. Suprapubic catheter and Ballard catheter in place.
--- NOTE | 2024-10-20 15:20 | RAD REPORT ---
EXAM: XR Abdomen 1 View (KUB) HISTORY: [facility] MA[facility] NGT Placement COMPARISON: None FINDINGS: Single view of the abdomen shows a nonspecific, nonobstructive bowel gas pattern. Enteric t ube in place, with tip projecting along the stomach body. No suspicious calcifications are seen. Left basilar pleural-parenchymal opacification again seen. Left chest wall pacer/AICD in place. The b ones are unremarkable. IMPRESSION: Satisfactory positioning of enteric tube.
[2024-10-20] MEDS: KCL 20 MEQ/100 mL IVPB 20 MEQ/100 ML BAG IV SCH (17:21)
[2024-10-20] MEDS: PANTOPRAZOLE 40 MG INJ IVP SCH (20:29)
[2024-10-20] MEDS: MELATONIN 5 MG TABLET PO ONE (21:00)
[2024-10-20] MEDS: KCL 20 MEQ/100 mL IVPB 100 ML IV ONE (22:19)
[2024-10-21 03:11] LABS: Anion Gap 11.5 mEq/L (5.0-15.0); Potassium 3.5 mEq/L (3.5-5.1)
[2024-10-21] MEDS: KCL 20 MEQ/100 mL IVPB 20 MEQ/100 ML BAG IV SCH (03:25)
[2024-10-21] MEDS ORDERED: VANCOMYCIN 1.5 GM in NA CHLORIDE 0.9% 500 ML IVPB SCH (06:00)
[2024-10-21 06:13] LABS: Albumin 2.1 g/dL (3.4-5.0); Albumin/Globulin Ratio 0.5 (1.1-1.8); Anion Gap 9.8 mEq/L (5.0-15.0); Bilirubin Total 0.4 mg/dL (0.2-1.0); Globulin 3.9 g/dL (2.3-3.5); Magnesium 1.9 mg/dL (1.6-2.4); Potassium 3.8 mEq/L (3.5-5.1)
[2024-10-21 06:19] LABS: Absolute Lymphocytes (CBC) 0.5 K/uL (0.7-4.9); Absolute Monocytes 0.2 K/uL (0.1-1.3); Basophils % 0.3 % (0-1.3); Eosinophils % 0.4 % (0-4.4); Hematocrit 27.6 % (39.6-49.0); Hemoglobin 9.1 g/dL (13.6-17.9); Lymphocytes % 11.4 % (15.3-44.8); MCH 32.6 pg (27.0-35.0); MCHC 33.2 g/dL (32.0-36.0); MCV 98.3 fL (80-100); MPV 7.5 fL (7.6-11.3); Neutrophils % 83.9 % (41.7-73.7); Nucleated Red Blood Cells % 0.6 % (0-0); Platelets 116 thou/uL (152-406); RBC Red Blood Cell Count 2.81 M/uL (4.33-5.43)
--- NOTE | 2024-10-21 10:15 | RAD REPORT ---
EXAMINATION: CT ABDOMEN AND PELVIS WITHOUT CONTRAST CLINICAL INDICATION: Male, 83 years old.gastric outlet obstruction TECHNIQUE: CT abdomen and pelvis was performed, without IV contrast, as per department protocol. Axia l, sagittal and coronal reconstructions were obtained. One or more of the following dose reduction techniques were used: Automated exposure control, adjustment of the mA and/or kV according to the pat ient size, and/or iterative reconstruction. Unless otherwise specified, incidental findings do not require dedicated imaging follow-up. [id number]. IV CONTRAST: Not administered. COMPARISON: 10/17/2024 FINDINGS: The lack of intravenous contrast limits the sensitivity of this exam for evaluation of solid visceral organs, vascular structures, and retroperitoneum. LOWER CHEST: Moderate right and small left pleural effusion with probable underlying atelectasis.Mode rate cardiomegaly. Coronary artery calcifications. Pacemaker leads. UPPER GI: NG tube in the stomach. Oral contrast administered which reaches the colon. No findings to suggest gastric outlet obstruction. LIVER: Low-density lesion left hepatic lobe is unchanged, likely benign. GALLBLADDER/BILE DUCTS: Cholelithiasis without CT evidence of acute cholecystitis.? PANCREAS: No mass, ductal dilation, or katlin-pancreatic fluid. SPLEEN: Unremarkable. ADRENALS: No adrenal masses. KIDNEYS AND URETERS: No hydronephrosis.Within the limitations of a noncontrast CT, no suspicious esperanza l lesions.5 mm stone at the left renal pelvis. ABDOMINAL AORTA AND OTHER VESSELS: Moderate atherosclerotic changes without aortic aneurysm. PERITONEUM: Mild ascites. LYMPH NODES: No pathologic lymphadenopathy. ABDOMINAL WALL: Body wall edema. SMALL BOWEL/COLON: Small bowel has normal course and caliber. No colonic wall thickening or pericolon ic inflammatory changes.Enteric contrast reaches the transverse colon. No bowel obstruction. URINARY BLADDER: Suprapubic catheter in place. Ballard catheter also present. Gas in bladder wall thick ening is again noted. REPRODUCTIVE ORGANS: No pathologic process. MUSCULOSKELETAL: No acute or suspicious osseous abnormality. ADDITIONAL FINDINGS: None. IMPRESSION: No evidence of gastric outlet obstruction. NG tube present with enteric contrast reaches the transver se colon. Increasing anasarca. Similar findings at the bladder compared with prior.
--- NOTE | 2024-10-21 15:46 | PN ---
Date of Progress Note: 10/21/2024 Subjective: Seen by bedside. Denies having any chest pain. He is having mild shortness of breath o n exertion and generally is very weak. Review of Systems: No chest pain. Mild shortness of breath. No nausea, vomiting, diarrhea. No abdominal pain. No dys uria, polyuria or urgency. All other systems reviewed are negative. Physical Examination: Vital Signs: Reviewed. General: He is alert, awake, oriented x3. Head and Neck: Pupils are equal, reactive to light. Intact eye movements. No JVD. No cervical lym phadenopathy. Neck supple. Thyroid is not enlarged. Lungs: Clear to auscultation bilaterally. No rhonchi, wheezing, or crackles. Heart : Regular rate and rhythm. No extra sounds. Abdomen: Soft, nontender. Bowel sounds positive. No tenderness. Extremities: No clubbing or cyanosis. Intact pulses. Skin: No rash. Neurologic: Alert, awake, oriented x3. No deficits seen. Laboratory Testing: Troponin peaked at 4578 and now down to 1732. BUN 40, creatinine 1.75. Assessment/recommendation: 1. Elevated troponin, could be [id number] myocardial infarction. He is chest pain free and tro ponin is coming down. This could also be demand ischemia. However, he is known to have coronary art karlie disease. If his condition stabilizes over the weekend, I recommend to do coronary angiogram on . Continue baby aspirin as well as heparin drip for now. 2. Congestive heart failure. He is euvolemic and continue to monitor. 3. Atrial fibrillation, controlled. Continue current management including amiodarone. 4. Vetiz-lt-pyhyoix renal failure. Creatinine is improving. We will recheck his labs on Thursday and plan for coronary angiogram if his condition is more stable. SR/MODL Voice ID: [id number] Report ID: [id number]
[2024-10-21] MEDS: ALBUMIN HUMAN 25% 50 ML IV ONE (17:51)
[2024-10-21] MEDS: FUROSEMIDE 20 MG/ 2ML VIAL IV ONE (18:56)
[2024-10-21 19:53] LABS: D-Dimer 3.604 FEUug/mL (0-0.500); PT Prothrombin Time 13.8 SECONDS (9.4-12.5); PTT, Activated Partial Thromb 75.6 SECONDS (24.3-36.9); Protime INR 1.32
--- NOTE | 2024-10-21 20:57 | CON ---
Date of Consultation: 10/21/2024 Reason For Consultation: Gastric distention, abdominal distention. History Of Present Illness: This patient is an 83-year-old white male with history of hypertension; hyperlipidemia; coronary artery disease, status post IN on this admission; arrhythmia, has pacemaker placement. The patient was admitted to the hospital due to urosepsis and altered mental status. Uro sepsis advanced with urinary tract infection. The patient was hypotensive. The patient had to have multiple IV pressors and placed in ICU. During that time, he sustained a myocardial infarction due t o hypotension and IV pressors. He began having abdominal pain. KUB was obtained and a massive gastr ic distention was noted. The next morning, approximately 12-20 hours later, he had a CT scan of the abdomen and pelvis reveals decreased gastric distention with contrast reaching the colon. The patien t continues to have some mild distention. I am asked to see patient for further evaluation and care. Past Medical History: Significant for hypertension; hyperlipidemia; coronary artery disease, status post IN on this admission; arrhythmia, pacemaker placement; kidney stones; benign prostatic hypertrop hy; suprapubic catheter placement. Allergies: NKDA. Other Home Medicines: Include allopurinol, amiodarone, Eliquis, Lasix, gabapentin, meclizine, multiv itamin, Lipitor, Flomax, CoQ10, and carvedilol. Social History: He is a , 1 son and 1 daughter. No tobacco. Never smoked. No alcohol. Family History: Father at 96 of old age. Mother at 88 of stroke. Review of Systems: The patient has abdominal pain, altered mental status on admission, urosepsis, gastric distention, ab dominal distention. Denies any hematemesis, coffee-grounds emesis, epistaxis, hemoptysis, melena, he matochezia. Does have some abdominal pain, which did improve since hypotension resolved with treatme nt of urosepsis and IV fluids. He denies any depression, anxiety. Sitting in chair currently now wi thout any acute distress. Physical Examination: Vital Signs: 6 feet, 225 pounds. BMI of 30.5 kg/sq m. temperature of 97.8 degrees Fahrenheit, pulse 81, respirations 24, blood pressure 130/91, O2 sat 98% on 20% FiO2. GENERAL: He is obese male, sitting in chair, in no acute distress. HEENT: Normocephalic, atraumatic. Anicteric. Pupils equal, round, and reactive to light. Extraocu lar movements are intact. Oropharynx is clear. Neck: Supple. No masses. Respirations: Clear to auscultation bilaterally. Cardiac: Regular rate and rhythm. Gastrointestinal: Positive bowel sounds. Soft. Mild tenderness at most currently, but some distent ion and obesity both and some tympany in the upper abdomen noted on percussion. No peritoneal or Mur phy sign. No rebound, but there was abdominal distention, mild to moderate with obesity as well. Extremities: He had 2+ lower extremity edema in his legs, 2 to 3+ possibly. Neuro: Alert and oriented x3. Able to move all extremities well. Likely decreased strength in lowe r extremities. Laboratory Data: The patient has a white count of 4.7, down from 31.7 three days ago with urosepsis; hemoglobin 9.1; hematocrit 28; MCV of 98; platelet count of 116; polys of 84%; lymphocytes 11%; mono cytes 4%. PTT of 65.4, mostly on heparin, PT of 18.5, INR of 1.77. The patient has a sodium 140, po tassium 3.8, chloride 114, bicarb 20, BUN of 40, creatinine of 1.8, glucose 107. Lactic acid last ch ecked 1.7 on the , 2.7 on the . None since that time. Troponin Is markedly elevated at 4579, 3201, and 2245 and then down to 1732. Elevated troponin is consistent with possible myocardial infar ction. The patient is supposed to have catheterization on Thursday in the clinic. Total protein 6.0, albumin 2.1. Procalcitonin of 15.27 consistent with his sepsis. UA revealed 3+ blood, 1+ nitrite, 5 00 leukocyte esterase, greater than 50 rbc's, greater than 50 white blood cells, many white blood adolph ls, less than 5 squamous epithelial cells. Clean catch, 250 bacteria, 3+ protein on October 17 and COVID testing was negative. KUB on the 6 early in the morning, approximately 1 o'clock in the [facility]. Stomach moderate to markedly dilated at 12 in the morning and then later on KUB taken at approxi mately 2 o'clock in the afternoon yesterday. Mild improvement it looks in the gastric distention and then subsequent to that, approximately midnight and 1 o'clock this morning 24 hours after first x-ra y was performed, no gastric outlet obstruction. NG tube in place. Increasing anasarca and gastric d istention is decreased. Impression: 1. Probable gastrointestinal ischemia from acute event of urosepsis, hypotension requiring IV pressor s. The patient had simultaneous myocardial infarction as evidenced by his troponin I. The patient i s to undergo cardiac cath on Thursday due to this. The patient has seen stress on his body at his age of 83 with coronary artery disease, seems to be already. KUB was taken with [id number] arked gastric distention and in 24 hours later, subsequent CT abdomen and pelvis revealed decreased g astric distention with NG tube in place, but also contrast reaching the colon. This is consistent wi th possible ischemic insult due to the hypotension from the urosepsis and IV pressors. 2. Protein-calorie malnutrition with albumin 2.1. Improving this would actually help his ability to retain fluids and profound hypotension. 3. History of hypertension. 4. Hyperlipidemia. 5. Coronary artery disease, status post myocardial infarction. 6. Arrhythmia. 7. Pacemaker. 8. Kidney stone. 9. Benign prostatic hypertrophy. 10. Suprapubic catheter placement. Recommendations: 1. Check CTA. 2. Check labs including lactate again and see if it has been elevated, which would confirm the diagno sis of probable gastrointestinal ischemia; LDH; total bilirubin; D-dimer; PT; and PTT. Also would ch ezra pre-albumin. Increase nutrition as patient has protein- calorie malnutrition. Albumin of 2.1. Continue IV fluids, IV rehydration. WS/MODL Voice ID: [id number] Report ID: [id number]
[2024-10-21] MEDS: MELATONIN 5 MG TABLET PO PRN (22:31)
[2024-10-22 05:33] LABS: Absolute Lymphocytes (CBC) 1.2 K/uL (0.7-4.9); Absolute Monocytes 0.6 K/uL (0.1-1.3); Absolute Neutrophil 3.5 K/uL (1.8-8.0); Basophils % 0.4 % (0-1.3); Eosinophils % 0.8 % (0-4.4); Hematocrit 29.3 % (39.6-49.0); Hemoglobin 9.6 g/dL (13.6-17.9); Lymphocytes % 22.3 % (15.3-44.8); MCH 32.4 pg (27.0-35.0); MCHC 32.8 g/dL (32.0-36.0); MCV 98.5 fL (80-100); MPV 7.5 fL (7.6-11.3); Monocytes % 10.7 % (3.3-12.3); Neutrophils % 65.8 % (41.7-73.7); Nucleated Red Blood Cells % 0.4 % (0-0); Platelets 113 thou/uL (152-406); RBC Red Blood Cell Count 2.97 M/uL (4.33-5.43); Red Cell Distribution Width 21.2 % (12.1-15.2)
[2024-10-22 05:45] LABS: PT Prothrombin Time 14.3 SECONDS (9.4-12.5); Protime INR 1.37
[2024-10-22 06:19] LABS: Albumin 2.3 g/dL (3.4-5.0); Albumin/Globulin Ratio 0.6 (1.1-1.8); Anion Gap 7.2 mEq/L (5.0-15.0); Bilirubin Total 0.5 mg/dL (0.2-1.0); Globulin 3.9 g/dL (2.3-3.5); Magnesium 1.7 mg/dL (1.6-2.4); Phosphorus 2.7 mg/dL (2.5-4.9); Potassium 3.2 mEq/L (3.5-5.1); Protein, Total 6.2 g/dL (6.4-8.2)
[2024-10-22] MEDS: D5W 1,000 ML with NA BICARB 8.4% 50 MEQ IV SCH (08:17)
[2024-10-22] MEDS: PHENOL 1.4% ORAL SPRAY 180ML ONE (10:30)
[2024-10-22] MEDS: PHENOL 1.4% ORAL SPRAY 180ML MM PRN (10:55)
[2024-10-22] MEDS: KCL 20 MEQ/100 mL IVPB 20 MEQ/100 ML BAG IV SCH (12:06)
--- NOTE | 2024-10-22 14:41 | RAD REPORT ---
EXAM: AP view(s) of the abdomen Abdomen 1 View (KUB) HISTORY: Abd distention COMPARISON: 10/20/2024 FINDINGS: Nonobstructive bowel gas pattern.. Enteric tube in the stomach. No suspicious calcifications are seen. No acute osseous abnormality. Bladder catheters, one of which is a suprapubic catheter. Other: n/a IMPRESSION: Nonobstructive bowel gas pattern.
--- NOTE | 2024-10-22 15:18 | P.PN ---
Subjective Date of Service: 10/23/24 Chief Complaint: Distended stomach on KUB, hypotension on IV pressors with CAD and new IL pr Subjective: Improving (Decreased gastric distention. Po contrast on CT seen in colon. Probably gastro-intestinal ischemia due to UTI/sepsis requiring IV pressors for hypotension and ICU care with new probable IL as well.) Review of Systems 10-point ROS is otherwise unremarkable General: Weakness, Malaise Physical Examination - Vital Signs Temperature: 97.1 F Blood Pressure: 136/76 Pulse: 66 Respirations: 16 Pulse Ox (%): 100 - Physical Exam General: Alert, In no apparent distress, Cooperative HEENT: Atraumatic, Normocephalic, PERRLA, EOMI Neck: Supple Respiratory: Normal air movement Cardiovascular: Normal pulses, Edema (in LEs 2-3+ ) Gastrointestinal: Distended (Improved. ) Neurological: Normal speech - Studies Microbiology Data (last 24 hrs): 10/17/24 12:55 Blood - Blood Anaerobic Blood Culture - Final No growth in 5 days. 10/17/24 12:45 Blood - Blood Aerobic Blood Culture - Final No growth in 5 days. 10/17/24 12:45 Blood - Blood Anaerobic Blood Culture - Final No growth in 5 days. 10/17/24 12:55 Catheterized Urine [place] Count - Final >100,000 CFU/ML. 10/17/24 12:55 Catheterized Urine - Final Escherichia Coli Esbl Medications List Reviewed: Yes Assessment And Plan - Current Problems (Diagnosis) (1) Abdominal distension Current Visit: Yes Status: Acute (2) Acute distention of stomach Current Visit: Yes Status: Acute (3) History of CAD (coronary artery disease) Current Visit: Yes Status: Acute (4) NSTEMI (non-ST elevated myocardial infarction) Current Visit: Yes Status: Acute (5) Septic shock due to urinary tract infection Current Visit: Yes Status: Acute - Plan REC: 1) continue resuscitation 2) check pre-albumin 3) slowly increase / advance diet
--- NOTE | 2024-10-22 18:16 | RAD REPORT ---
EXAMINATION: CTA ABDOMEN AND PELVIS WITH CONTRAST CLINICAL INDICATION: Male, 83 years old.mesenteric ischemia TECHNIQUE: CTA abdomen and pelvis was performed, after the administration of IV contrast, as per [facility] protocol. MIPS were created. Axial, sagittal and coronal reconstructions were obtained. One or more of the following dose reduction techniques were used: Automated exposure control, adjustment of the mA and/or kV according to patient size, and/or iterative reconstruction. Unless otherwise specified, incidental findings do not require dedicated imaging follow-up. [id number]. COMPARISON: 10/21/2024 FINDINGS: VASCULAR: ABDOMINAL AORTA AND OTHER VESSELS: Critical stenosis which is near occlusion of the SMA approximately 1 cm beyond its origin. The celiac trunk is widely patent. The YASMANY appears patent. The renal arteries are patent. The iliac and femoral arteries are patent. NONVASCULAR: LOWER CHEST: ICD. Cardiomegaly.No significant pericardial effusion. Mild to moderate bilateral pleura l effusions with underlying atelectasis. UPPER GI: No significant abnormality. LIVER: Benign appearing low density liver lesions. No suspicious mass. GALLBLADDER/BILE DUCTS: Cholelithiasis without CT evidence of acute cholecystitis.? PANCREAS: No mass, ductal dilation, or katlin-pancreatic fluid. SPLEEN: Unremarkable. ADRENALS: No adrenal masses. KIDNEYS AND URETERS: Normal size and contour. No hydronephrosis.Low density and/or too small to kenji cterize renal lesions which are statistically benign. PERITONEUM: Mild ascites. LYMPH NODES: No pathologic lymphadenopathy. ABDOMINAL WALL: Suprapubic catheter. Body wall edema. SMALL BOWEL/COLON: Small bowel has normal course and caliber. No colonic wall thickening or pericolon ic inflammatory changes. URINARY BLADDER: Suprapubic and Ballard catheter. Bladder wall thickening is still present as well as t he small possible ulceration containing gas along the bladder dome. REPRODUCTIVE ORGANS: No pathologic process. MUSCULOSKELETAL: No acute or suspicious osseous abnormality. ADDITIONAL FINDINGS: None. IMPRESSION: Critical stenosis with near occlusion of the SMA secondary to noncalcified plaque approximately 1 cm from its origin. The celiac trunk is widely patent. The YASMANY also appears patent. Increasing ascites which may be secondary to volume overload or right heart failure.
[2024-10-23 07:47] LABS: Hematocrit 30.3 % (39.6-49.0); Hemoglobin 10.2 g/dL (13.6-17.9); MCH 32.6 pg (27.0-35.0); MCHC 33.5 g/dL (32.0-36.0); MCV 97.4 fL (80-100); MPV 7.8 fL (7.6-11.3); Platelets 109 thou/uL (152-406); RBC Red Blood Cell Count 3.12 M/uL (4.33-5.43); Red Cell Distribution Width 21.2 % (12.1-15.2)
[2024-10-23 07:57] LABS: Albumin 2.2 g/dL (3.4-5.0); Albumin/Globulin Ratio 0.6 (1.1-1.8); Anion Gap 7.2 mEq/L (5.0-15.0); Bilirubin Total 0.8 mg/dL (0.2-1.0); Globulin 3.8 g/dL (2.3-3.5); Magnesium 1.7 mg/dL (1.6-2.4); Potassium 3.2 mEq/L (3.5-5.1)
[2024-10-23 08:00] LABS: Troponin High Sensitivity 1286.3 pg/mL (<58.9)
[2024-10-23] MEDS ORDERED: ALBUTEROL 2.5 MG/3 ML NEB SOL NEB PRN (08:07)
[2024-10-23 08:37] LABS: Atypical Lymphocytes 1 %; Band Neutrophils 1 % (0-1); Differential Total Cells Count 100; Eosinophils 1 % (0-3); Lymphocytes 30 % (15-42); Metamyelocytes 3 % (0-0); Monocytes 15 % (0-10); Myelocytes 3 % (0-0); Segmented Neutrophils 46 % (40-80); Toxic Granulation 1+
[2024-10-23 08:38] LABS: Anisocytosis 1+; Blood Morphology Comment NOTED (NOT SEEN); Macrocytosis 1+; Microcytosis SLIGHT
[2024-10-23 08:39] LABS: Platelet Estimate DECR
[2024-10-23] MEDS: POTASSIUM 25 MEQ EFFERV TAB PO ONE (08:52)
[2024-10-23] MEDS ORDERED: IPRATROPIUM BROM 0.5MG/2.5ML NEB PRN (09:33)
--- NOTE | 2024-10-23 16:35 | P.PN ---
Subjective Date of Service: 10/23/24 Chief Complaint: Distended stomach on KUB, hypotension on IV pressors with CAD and new PA pr Subjective: Improving (Feels much better. Tolerating po diet. No abdominal pain, N/V. Imaging reveals gastric distention largely resolved. CTA revealed as suspected near occlusion of SMA but YASMANY and celiac artery still patent -> thus probable ischemia with gastric distention due to hypotension from UTI / sepsis with), Other (with IV pressors in ICU and with simultaneous PA in this 83 y.o. with CAD (elevated TrpIs).) Review of Systems 10-point ROS is otherwise unremarkable General: Weakness (Improved.) Physical Examination - Vital Signs Temperature: 97.1 F Blood Pressure: 136/76 Pulse: 66 Respirations: 16 Pulse Ox (%): 100 - Physical Exam General: Alert, In no apparent distress, Oriented x3, Cooperative HEENT: Atraumatic, Normocephalic, PERRLA, EOMI Neck: Supple Respiratory: Normal air movement Cardiovascular: Normal pulses, Edema (2-3+ LE b/) Gastrointestinal: Soft and benign, No tenderness, No rebound, No guarding Neurological: Normal speech - Studies Microbiology Data (last 24 hrs): 10/17/24 12:55 Blood - Blood Aerobic Blood Culture - Final 10/17/24 12:55 Blood - Blood Blood Culture Gram Stain - Final 10/17/24 12:55 Blood - Blood Anaerobic Blood Culture - Final No growth in 5 days. 10/17/24 12:45 Blood - Blood Aerobic Blood Culture - Final No growth in 5 days. 10/17/24 12:45 Blood - Blood Anaerobic Blood Culture - Final No growth in 5 days. Medications List Reviewed: Yes Assessment And Plan - Current Problems (Diagnosis) (1) Abdominal distension Current Visit: Yes Status: Acute Comment: Improved. (2) Acute distention of stomach Current Visit: Yes Status: Acute Comment: Improved. (3) History of CAD (coronary artery disease) Current Visit: Yes Status: Acute (4) NSTEMI (non-ST elevated myocardial infarction) Current Visit: Yes Status: Acute (5) Septic shock due to urinary tract infection Current Visit: Yes Status: Acute - Plan REC: 1) continue resuscitation 2) check pre-albumin 3) slowly increase / advance diet 4) await cardiology evaluation - possible cath in AM and possible IR stent of SMA
--- NOTE | 2024-10-24 02:23 | P.PN ---
Date of Service: 10/23/24 Subjective Patient is clinically doing much better. However, patient's NG tube remains in place because patient still with increased output after clear liquid diet. CT angio revealed critical stenosis at the SMA. Spoke with Cardiology who recommended speaking with vascular surgery. They will check in a.m. to see if they have the ability to stent the SMA at this hospital. Patient scheduled for cardiac catheterization in a.m. as well. Will continue with gentle hydration Physical Examination - Vital Signs reviewed - Physical Exam General: Alert, In no apparent distress, Oriented x3; NG tube in place Respiratory: Clear to auscultation bilaterally, Normal air movement Cardiovascular: Regular rate/rhythm, Normal S1 S2, Systolic murmur Gastrointestinal: Normal bowel sounds, Soft and benign, Non-distended, No rebound, No guarding Musculoskeletal: No clubbing, No swelling Neurological: No focal deficits; generalized weakness Urinary: Suprapubic catheter/Ballard catheter Assessment & Plan - Problems (Diagnosis) (1) Septic shock due to urinary tract infection Current Visit: Yes Status: Acute (2) Chronic suprapubic catheter Current Visit: Yes Status: Acute (3) Type 2 myocardial infarction versus type 1 myocardial infarction Current Visit: Yes Status: Acute (4) History of permanent cardiac pacemaker placement Current Visit: Yes Status: Acute (5) Gastric dilatation Current Visit: Yes Status: Acute (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 Septic shock secondary to UTI in a patient with a suprapubic catheter. Patient's lactic acidosis has improved. Patient given IV fluid boluses; patient currently on maintenance IV fluids. However, patient is hemodynamically stable. Patient was on multiple vasopressors-Levophed, vasopressin, and epinephrine-which had been weaned off for the last 4 days. Patient remains in ICU. 2. CANDICE; patient most likely related to ATN. Monitor renal function after IV hydration. Renal ultrasound with no acute abnormalities. Renal function is continuing to improve. 3. Type 1 versus type 2 myocardial infarction; CAD with prior stent placement; history of CHF; ejection fraction is 40-45% We will go ahead and continue with antiplatelet therapy and statin therapy. Patient on a heparin drip so we will monitor any signs of bleeding. Troponins were elevated. Cardiology planning on doing cardiac catheterization. 4. Gastric dilatation which is secondary to superior mesenteric artery critical stenosis; vascular surgery to see if we can stand the superior mesenteric artery 5. Anemia; monitor hemoglobin closely 5. GI/DVT prophylaxis Discharge Plan: Home Plan to discharge in: Greater than 2 days - Advance Directives Does patient have a Living Will: No Does patient have a Durable POA for Healthcare: No - Code Status/Comfort Care Code Status: Full Code Critical Care: Yes Time Spent Managing PTS Care (In Minutes): 35
--- NOTE | 2024-10-24 02:27 | P.PN ---
Date of Service: 10/22/24 Subjective Patient continues to improve. CT angio of the abdomen and pelvis pending. Overall, patient's clinical status is much better. Patient is starting to get out of bed and get to a chair. Plan for cardiac catheterization on Thursday. If CT of the abdomen and pelvis is negative then plan to DC NG tube. Appreciate GI input. Physical Examination - Vital Signs reviewed - Physical Exam General: Alert, In no apparent distress, Oriented x3; NG tube in place Respiratory: Clear to auscultation bilaterally, Normal air movement Cardiovascular: Regular rate/rhythm, Normal S1 S2, Systolic murmur Gastrointestinal: Normal bowel sounds, Soft and benign, Non-distended, No rebound, No guarding Musculoskeletal: No clubbing, No swelling Neurological: No focal deficits; generalized weakness Urinary: Suprapubic catheter/Ballard catheter Assessment & Plan - Problems (Diagnosis) (1) Septic shock due to urinary tract infection Current Visit: Yes Status: Acute (2) Chronic suprapubic catheter Current Visit: Yes Status: Acute (3) Type 2 myocardial infarction versus type 1 myocardial infarction Current Visit: Yes Status: Acute (4) History of permanent cardiac pacemaker placement Current Visit: Yes Status: Acute (5) Gastric dilatation Current Visit: Yes Status: Acute (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 Septic shock secondary to UTI in a patient with a suprapubic catheter. Patient's lactic acidosis has improved. Patient given IV fluid boluses; patient currently on maintenance IV fluids. However, patient is hemodynamically stable. Patient was on multiple vasopressors-Levophed, vasopressin, and epinephrine-which had been weaned off for the last 4 days. Patient remains in ICU. 2. CANDICE; patient most likely related to ATN. Monitor renal function after IV hy dration. Renal ultrasound with no acute abnormalities. Renal function is continuing to improve. Continue with bicarb drip 3. Type 1 versus type 2 myocardial infarction; CAD with prior stent placement; history of CHF; ejection fraction is 40-45% We will go ahead and continue with antiplatelet therapy and statin therapy. Patient on a heparin drip so we will monitor any signs of bleeding. Troponins were elevated. Cardiology planning on doing cardiac catheterization. 4. Gastric dilatation; NGT is in place. CT angio of the abdomen and pelvis is pending to evaluate for mesenteric ischemia. 5. Anemia; monitor hemoglobin closely 5. GI/DVT prophylaxis Discharge Plan: Home Plan to discharge in: Greater than 2 days - Advance Directives Does patient have a Living Will: No Does patient have a Durable POA for Healthcare: No - Code Status/Comfort Care Code Status: Full Code Critical Care: Yes Time Spent Managing PTS Care (In Minutes): 35
[2024-10-24] MEDS: NA CHLORIDE 0.9% 1,000 ML IV SCH (02:29)
--- NOTE | 2024-10-24 02:30 | P.PN ---
Date of Service: 10/21/24 Subjective Patient was having abdominal pain after eating. Abdominal x-ray reveals significant gastric dilatation. NG tube was placed. Spoke with Gastroenterology and plan to do CT abdomen and pelvis angiogram. Cardiology is planning to do cardiac catheterization on Thursday. 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 Physical Examination - Vital Signs reviewed - Physical Exam General: Alert, In no apparent distress, Oriented x3; NG tube in place Respiratory: Clear to auscultation bilaterally, Normal air movement Cardiovascular: Regular rate/rhythm, Normal S1 S2, Systolic murmur Gastrointestinal: Normal bowel sounds, Soft and benign, Non-distended, No rebound, No guarding Musculoskeletal: No clubbing, No swelling Neurological: No focal deficits; generalized weakness Urinary: Suprapubic catheter/Ballard catheter Assessment & Plan - Problems (Diagnosis) (1) Septic shock due to urinary tract infection Current Visit: Yes Status: Acute (2) Chronic suprapubic catheter Current Visit: Yes Status: Acute (3) Type 2 myocardial infarction versus type 1 myocardial infarction Current Visit: Yes Status: Acute (4) History of permanent cardiac pacemaker placement Current Visit: Yes Status: Acute (5) Gastric dilatation Current Visit: Yes Status: Acute (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 Septic shock secondary to UTI in a patient with a suprapubic catheter. Patient's lactic acidosis has improved. Patient given IV fluid boluses; patient currently on maintenance IV fluids. However, patient is hemodynamically stable. Patient was on multiple vasopressors-Levophed, vasopressin, and epinephrine-which had been weaned off for the last 4 days. Patient remains in ICU. 2. CANDICE; patient most likely related to ATN. Monitor renal function after IV hydration. Renal ultrasound with no acute abnormalities. Renal function is continuing to improve. Continue with bicarb drip 3. Type 1 versus type 2 myocardial infarction; CAD with prior stent placement; history of CHF; ejection fraction is 40-45% We will go ahead and continue with antiplatelet therapy and statin therapy. Patient on a heparin drip so we will monitor any signs of bleeding. Troponins were elevated. Cardiology planning on doing cardiac catheterization. 4. Gastric dilatation Possibly secondary to mesenteric ischemia; NGT is in place. CT angio of the abdomen and pelvis is pending to evaluate for mesenteric ischemia. 5. Anemia; monitor hemoglobin closely 5. GI/DVT prophylaxis Discharge Plan: Home Plan to discharge in: Greater than 2 days - Advance Directives Does patient have a Living Will: No Does patient have a Durable POA for Healthcare: No - Code Status/Comfort Care Code Status: Full Code Critical Care: Yes Time Spent Managing PTS Care (In Minutes): 35
[2024-10-24 06:01] LABS: Absolute Eosinophils 0.2 K/uL (0-0.5); Absolute Lymphocytes (CBC) 1.3 K/uL (0.7-4.9); Absolute Monocytes 1.5 K/uL (0.1-1.3); Absolute Neutrophil 4.3 K/uL (1.8-8.0); Basophils % 0.4 % (0-1.3); Eosinophils % 2.8 % (0-4.4); Hematocrit 30.9 % (39.6-49.0); Hemoglobin 10.2 g/dL (13.6-17.9); Lymphocytes % 17.7 % (15.3-44.8); MCH 32.5 pg (27.0-35.0); MCV 98.5 fL (80-100); MPV 7.5 fL (7.6-11.3); Monocytes % 20.6 % (3.3-12.3); Neutrophils % 58.5 % (41.7-73.7); Nucleated Red Blood Cells % 0.1 % (0-0); Platelets 126 thou/uL (152-406); RBC Red Blood Cell Count 3.14 M/uL (4.33-5.43); Red Cell Distribution Width 21.2 % (12.1-15.2)
[2024-10-24 06:09] LABS: Anion Gap 5.9 mEq/L (5.0-15.0); Magnesium 1.8 mg/dL (1.6-2.4); Phosphorus 2.3 mg/dL (2.5-4.9); Potassium 3.9 mEq/L (3.5-5.1)
--- NOTE | 2024-10-24 10:06 | P.PN ---
Subjective Date of Service: 10/24/24 Chief Complaint: Distended stomach on KUB, hypotension on IV pressors with CAD and new MA pr Subjective: Improving Patient states that he is doing well, denied any postprandial abdominal pain or nausea and vomiting or recent weight loss. No history of dysphagia or odynophagia or nausea and vomiting. Review of Systems Other: Consitutional; fever(-), chills (-), rigor(-), night sweat(-), unintentional weight loss(-), malaise (-) HEENT; diplopia (-), rhinorrhea (-), epistaxis (-), otorrhea (-), otalgia (-) Respiratory; shortness of breath (-), wheezing (-), cough (-), sputum (-), pleuritic chest pain (-) Cardiovascular; chest pain (-), peripheral edema (-), paroxysmal nocturnal dyspnea (-), orthopnea (-) Gastrointestinal; nausea (-), vomiting (-), abdominal pain (-), diarrhea (-), constipation (-), melena (-), hematochezia (-) Genitourinary; urinary frequency (-), dysuria (-), urgency (-), flank pain (-), gross hematuria (-), incontinence (-) Skin; rash (-), 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 General: Not acutely ill looking, in no apparent distress,. HEENT: Normocephalic, atraumatic, nonicteric sclera, nonanemic conjunctive. Neck: Supple, without JVD or goiter or thyroid mass, NG tube in place draining clear gastric juice. Respiratory: Normal breathing effort, clear to auscultation bilaterally, no crackles no wheezing or rhonchi. Cardiovascular: Regular rate and rhythm, S1, S2 normal, no murmur no gallop. Gastrointestinal: Normal bowel sounds, nondistended, nontender, No ascites, , No masses, no hepatosplenomegaly, suprapubic cystostomy and indwelling Ballard catheter in place. Extremities : No clubbing, No peripheral edema,. Integumentary: No rashes, petechia, suspected lesions. Lymphatics: No axilla or cervical lymphadenopathy. Neurology; alert awake oriented x3, no focal neurologic deficit, normal affection . mood and behavior. - Studies Microbiology Data (last 24 hrs): 10/17/24 12:55 Blood - Blood Aerobic Blood Culture - Final 10/17/24 12:55 Blood - Blood Blood Culture Gram Stain - Final 10/17/24 12:55 Blood - Blood Anaerobic Blood Culture - Final No growth in 5 days. Medications List Reviewed: Yes Assessment And Plan - Plan Patient is an 83-year-old gentleman with a history of BPH, obstructive uropathy status post suprapubic cystostomy, coronary artery disease status postcoronary stent, hypertension came to the hospital with septic shock. Patient lives by himself. He had a suprapubic catheter placed in December 2023. The family states this was because of a large prostate and multiple kidney stones. Since patient had a suprapubic catheter he has had episodes of sepsis x 3. He was admitted on MICU after starting empiric broad-spectrum antibiotics and vasopressors 1. Catheter associated UTI complicated by septic shock with ESBL E. coli Improved currently off vasopressors (Levophed, vasopressin, and epinephrine), leukocytosis resolved, remain afebrile will continue meropenem until urine culture identification and sensitivity available,. 2. Nonoliguric CANDICE; patient most likely related to ATN. Renal ultrasound with no acute abnormalities. Renal function is continuing to improve. Today's serum creatinine 1.3, bicarb 29, potassium 3.9, urine output 2 L over the past 24 hours, I will order follow-up CBC and BMP tomorrow morning after coronary angiogram 3. Non-STEMI type 1 versus type 2 myocardial infarction; No sign of heart failure, cardiac cath scheduled for today, continue with antiplatelet therapy and statin therapy. Patient on a heparin drip Cardiology planning on doing cardiac catheterization. 4. Asymptomatic superior mesenteric artery critical stenosis by CTA of the abdomen; vascular surgery to see if we can stand the superior mesenteric artery 5. Likely anemia of chronic disease No sign of overt clinical bleeding, hemoglobin stable around 10, DVT prophylaxis, heparin drip
[2024-10-24] MEDS ORDERED: HEPA 1000U/500MLS 2,000 UNIT/1,000 ML BAG IV ONE (10:23)
[2024-10-24] MEDS ORDERED: VERAPAMIL HCL 10 MG/4 ML VIAL IV ONE (10:24)
[2024-10-24] MEDS ORDERED: LIDOCAINE 1% 20 ML MDV ONE (10:24)
[2024-10-24] MEDS ORDERED: HEPARIN 10,000 UNIT/10 ML VIAL IV ONE (10:24)
[2024-10-24] MEDS ORDERED: ATROPINE SULF 1 MG/10 ML SYR IV ONE (10:24)
[2024-10-24] MEDS ORDERED: MIDAZOLAM HCL 2 MG/2 ML INJ ONE (10:24)
[2024-10-24] MEDS ORDERED: FENTANYL CITR 100 MCG/2 ML ONE (10:25)
[2024-10-24] MEDS ORDERED: ASPIRIN 325 MG TAB ONE (10:25)
[2024-10-24] MEDS ORDERED: HEPARIN 5000 UNIT/ML 1 ML VIAL ONE (10:25)
[2024-10-24] MEDS ORDERED: CLOPIDOGREL 75 MG TABLET ONE (10:25)
[2024-10-24] MEDS ORDERED: TICAGRELOR 90 MG TABLET PO ONE (10:25)
[2024-10-24] MEDS ORDERED: NALOXONE 0.4 MG/ML VIAL ONE (10:25)
[2024-10-24] MEDS ORDERED: FLUMAZENIL 0.1 MG/ML (5 mL VIAL) IV ONE (10:26)
[2024-10-24] MEDS ORDERED: REGADENOSON 0.4 MG/5 ML SYR IV ONE ×2 (11:17→11:20)
--- NOTE | 2024-10-24 12:39 | P.PN ---
Subjective Date of Service: 10/24/24 Chief Complaint: Distended stomach on KUB, hypotension on IV pressors with CAD and new [place] pr Subjective: No new changes, No C/O voiced, Tolerating diet, Ambulating, Improving Review of Systems 10-point ROS is otherwise unremarkable Physical Examination - Vital Signs Temperature: 97.6 F Blood Pressure: 144/69 Pulse: 75 Respirations: 20 Pulse Ox (%): 95 - Physical Exam General: Alert, In no apparent distress HEENT: Atraumatic, PERRLA, EOMI Neck: Supple, JVD not distended Respiratory: Clear to auscultation bilaterally, Normal air movement Cardiovascular: Regular rate/rhythm, Normal S1 S2 Gastrointestinal: Normal bowel sounds, No tenderness Musculoskeletal: No tenderness Integumentary: No rashes Neurological: Normal speech, Normal tone, Normal affect Lymphatics: No axilla or inguinal lymphadenopathy Other Physical/Emotional Findings: - Physical Exam. General: Not acutely ill looking, in no apparent distress,. HEENT: Normocephalic, atraumatic, nonicteric sclera, nonanemic conjunctive. Neck: Supple, without JVD or goiter or thyroid mass, NG tube in place draining clear gastric juice. Respiratory: Normal breathing effort, clear to auscultation bilaterally, no crackles no wheezing or rhonchi. Cardiovascular: Regular rate and rhythm, S1, S2 normal, no murmur no gallop. Gastrointestinal: Normal bowel sounds, nondistended, nontender, No ascites, , No masses, no hepatosplenomegaly, suprapubic cystostomy and indwelling Ballard catheter in place. Extremities : No clubbing, No peripheral edema,. Integumentary: No rashes, petechia, suspected lesions. Lymphatics: No axilla or cervical lymphadenopathy. Neurology; alert awake oriented x3, no focal neurologic deficit, normal affection . mood and behavior. - Studies Microbiology Data (last 24 hrs): 10/17/24 12:55 Blood - Blood Aerobic Blood Culture - Final 10/17/24 12:55 Blood - Blood Blood Culture Gram Stain - Final 10/17/24 12:55 Blood - Blood Anaerobic Blood Culture - Final No growth in 5 days. Medications List Reviewed: Yes Assessment And Plan - Current Problems (Diagnosis) (1) NSTEMI (non-ST elevated myocardial infarction) Current Visit: Yes Status: Acute Plan: Coronary angiogram done today and show moderate LCX/LAD disease (FFR negative on both). continue ASA 81 mg daily continue Plavix 75 mg daily (2) Chronic combined systolic and diastolic heart failure Current Visit: Yes Status: Acute Plan: Patient is currently euvolemic on exam, continue to monitor (3) Atrial fibrillation Current Visit: Yes Status: Acute Plan: currently in sinus/paced. heparin drip for anticoagulation.
[2024-10-24] MEDS: Meropenem 1,000 MG in NA CHLORIDE 0.9% 100 ML IV SCH (20:45)
--- NOTE | 2024-10-24 21:03 | OP ---
Date of Procedure: 10/24/2024 Surgeon: Shaheen Hudson Procedures Performed: 1. Selective coronary angiogram. 2. Fractional flow reserve of the obtuse marginal 1. 3. Fractional flow reserve of the left anterior descending. Indication For Procedure: [id number] [place]. Complications: None. Estimated Blood Loss: Less than 50 cc. Access: Right radial, closed by TR band. Description Of Procedure: After risks, benefits, and alternatives were explained to the patient, the patient agreed to proceed with procedure and signed informed consent. The patient was brought back to the propagator laborer, prepped and draped in sterile fashion. Time-out was performed. Sedation was admini stered. Next, right radial access was obtained using ultrasound-guided micropuncture technique. Tig er 4 catheter was advanced to the aortic root. Selective angiogram was done. That catheter was late r exchanged with an EBU 3.5 mm guide to the left main. Heparin was administered. ACT was therapeuti c. Next, [place] FFR wire was passed across the left circumflex into OM 2. Baseline FFR was 0.1, peak FFR was 0.92. Then that wire was moved back into the LAD. Baseline FFR was 0.92, peak was 0.8 8. No drift on both lesions and TENZIN-3 flow at the end of procedure, so catheter was removed over a J-wire and sheath was removed. TR band was applied. Hemostasis was achieved. The patient was moved back to recovery in stable condition. Findings: 1. Left main: Normal. 2. LAD: Proximal to mid diffuse mild luminal irregularities with 50% to 60% diffuse disease. FFR ne gative. Then, mid to distal stent is patent. 3. Left circumflex: Ostial to proximal 60% to 70% disease. FFR done was negative. OM 2 stent paten t. OM1 small artery with ostial 70% to 80% disease. 4. RCA: Proximal mild luminal irregularities with mid diffuse 50% disease and mild luminal irregular ities. Assessment And Plan: 1. Moderate proximal to mid left anterior descending disease, fractional flow reserve negative with p atent mid to distal stent. 2. Moderate proximal to mid left circumflex into obtuse marginal 2 disease, that is fractional flow r eserve negative with patent mid to distal stent. Plan is to continue medical management. GONZALEZ/JJ Voice ID: [id number] Report ID: [id number]
[2024-10-25 05:43] LABS: Absolute Basophils 0.1 K/uL (0-0.5); Absolute Eosinophils 0.2 K/uL (0-0.5); Absolute Lymphocytes (CBC) 1.4 K/uL (0.7-4.9); Absolute Monocytes 2.2 K/uL (0.1-1.3); Absolute Neutrophil 5.3 K/uL (1.8-8.0); Basophils % 0.8 % (0-1.3); Eosinophils % 2.7 % (0-4.4); Hematocrit 28.3 % (39.6-49.0); Hemoglobin 9.8 g/dL (13.6-17.9); Lymphocytes % 14.8 % (15.3-44.8); MCH 33.7 pg (27.0-35.0); MCHC 34.6 g/dL (32.0-36.0); MCV 97.4 fL (80-100); Monocytes % 23.9 % (3.3-12.3); Neutrophils % 57.8 % (41.7-73.7); Nucleated Red Blood Cells % 0.1 % (0-0); Platelets 118 thou/uL (152-406); RBC Red Blood Cell Count 2.91 M/uL (4.33-5.43)
[2024-10-25 05:55] LABS: Anion Gap 6.7 mEq/L (5.0-15.0); Potassium 3.7 mEq/L (3.5-5.1)
[2024-10-25 06:17] LABS: Magnesium 1.6 mg/dL (1.6-2.4); Phosphorus 2.8 mg/dL (2.5-4.9)
[2024-10-25] MEDS: carvediloL 6.25 MG TAB PO SCH (08:27)
[2024-10-25] MEDS: CLOPIDOGREL 75 MG TABLET PO SCH (08:27)
[2024-10-25] MEDS: MAGNESIUM SULFATE 1 gm IVPB 1 GM/100 ML BAG IV ONE (08:38)
[2024-10-25] MEDS: POTASSIUM CL SA 10 MEQ TAB PO ONE (08:39)
[2024-10-25 10:37] LABS: Atypical Lymphocytes 1 %; Band Neutrophils 3 % (0-1); Differential Total Cells Count 100; Eosinophils 2 % (0-3); Lymphocytes 16 % (15-42); Metamyelocytes 2 % (0-0); Monocytes 17 % (0-10); Myelocytes 2 % (0-0); Segmented Neutrophils 57 % (40-80); Toxic Granulation 1+
[2024-10-25 10:38] LABS: Anisocytosis 1+; Blood Morphology Comment NOTED (NOT SEEN); Microcytosis SLIGHT; Platelet Estimate DECR
[2024-10-25] MEDS: AMIODARONE HCL 200 MG TAB PO SCH (11:07)
--- NOTE | 2024-10-25 12:05 | P.PN ---
Subjective Date of Service: 10/25/24 Chief Complaint: Distended stomach on KUB, hypotension on IV pressors with CAD and new [place] pr Subjective: No new changes, No C/O voiced, Tolerating diet, Ambulating, Improving Review of Systems 10-point ROS is otherwise unremarkable Physical Examination - Vital Signs Temperature: 97.8 F Blood Pressure: 138/73 Pulse: 75 Respirations: 17 Pulse Ox (%): 98 - Physical Exam General: Alert, In no apparent distress HEENT: Atraumatic, PERRLA, EOMI Neck: Supple, JVD not distended Respiratory: Clear to auscultation bilaterally, Normal air movement Cardiovascular: Regular rate/rhythm, Normal S1 S2 Gastrointestinal: Normal bowel sounds, No tenderness Musculoskeletal: No tenderness Integumentary: No rashes Neurological: Normal speech, Normal tone, Normal affect Lymphatics: No axilla or inguinal lymphadenopathy Other Physical/Emotional Findings: - Physical Exam. General: Not acutely ill looking, in no apparent distress,. HEENT: Normocephalic, atraumatic, nonicteric sclera, nonanemic conjunctive. Neck: Supple, without JVD or goiter or thyroid mass, NG tube in place draining clear gastric juice. Respiratory: Normal breathing effort, clear to auscultation bilaterally, no crackles no wheezing or rhonchi. Cardiovascular: Regular rate and rhythm, S1, S2 normal, no murmur no gallop. Gastrointestinal: Normal bowel sounds, nondistended, nontender, No ascites, , No masses, no hepatosplenomegaly, suprapubic cystostomy and indwelling Ballard catheter in place. Extremities : No clubbing, No peripheral edema,. Integumentary: No rashes, petechia, suspected lesions. Lymphatics: No axilla or cervical lymphadenopathy. Neurology; alert awake oriented x3, no focal neurologic deficit, normal affection . mood and behavior. - Studies Medications List Reviewed: Yes Assessment And Plan - Current Problems (Diagnosis) (1) NSTEMI (non-ST elevated myocardial infarction) Current Visit: Yes Status: Acute Plan: Coronary angiogram done today and show moderate LCX/LAD disease (FFR negative on both). continue ASA 81 mg daily continue Plavix 75 mg daily (2) Chronic combined systolic and diastolic heart failure Current Visit: Yes Status: Acute Plan: Patient is currently euvolemic on exam, continue to monitor (3) Atrial fibrillation Current Visit: Yes Status: Acute Plan: currently in sinus/paced. continue Amiodarone 100 mg daily heparin drip for anticoagulation. can be switched to his home dose Eliquis once no more procedures needed cardiology will sign off, please call with any questions.
--- NOTE | 2024-10-25 13:07 | P.PN ---
Subjective Date of Service: 10/25/24 Chief Complaint: Distended stomach on KUB, hypotension on IV pressors with CAD and new PR pr Subjective: Improving He is doing well, his coronary angiogram shows nonobstructive coronary artery disease, no intervention performed. He is tolerating oral diet well without any nausea and vomiting or postprandial abdominal pain. He has both suprapubic cystostomy and indwelling Ballard catheter both draining urine over 1 L. Review of Systems Other: Consitutional; fever(-), chills (-), rigor(-), night sweat(-), unintentional weight loss(-), malaise (-) HEENT; diplopia (-), rhinorrhea (-), epistaxis (-), otorrhea (-), otalgia (-) Respiratory; shortness of breath (-), wheezing (-), cough (-), sputum (-), pleuritic chest pain (-) Cardiovascular; chest pain (-), peripheral edema (-), paroxysmal nocturnal dyspnea (-), orthopnea (-) Gastrointestinal; nausea (-), vomiting (-), abdominal pain (-), diarrhea (-), constipation (-), melena (-), hematochezia (-) Genitourinary; urinary frequency (-), dysuria (-), urgency (-), flank pain (-), gross hematuria (-), incontinence (-) Skin; rash (-), 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 General: Not acutely ill looking, in no apparent distress,. HEENT: Normocephalic, atraumatic, nonicteric sclera, nonanemic conjunctive. Neck: Supple, without JVD or goiter or thyroid mass, NG tube in place draining clear gastric juice. Respiratory: Normal breathing effort, clear to auscultation bilaterally, no crackles no wheezing or rhonchi. Cardiovascular: Regular rate and rhythm, S1, S2 normal, no murmur no gallop. Gastrointestinal: Normal bowel sounds, nondistended, nontender, No ascites, , No masses, no hepatosplenomegaly, suprapubic cystostomy and indwelling Ballard catheter in place. Extremities : No clubbing, No peripheral edema,. Integumentary: No rashes, petechia, suspected lesions. Lymphatics: No axilla or cervical lymphadenopathy. Neurology; alert awake oriented x3, no focal neurologic deficit, normal affection . mood and behavior. - Studies Medications List Reviewed: Yes Assessment And Plan - Plan Patient is an 83-year-old gentleman with a history of BPH, obstructive uropathy status post suprapubic cystostomy, coronary artery disease status postcoronary stent, hypertension came to the hospital with septic shock. Patient lives by himself. He had a suprapubic catheter placed in December 2023. The family states this was because of a large prostate and multiple kidney stones. Since patient had a suprapubic catheter he has had episodes of sepsis x 3. He was admitted on MICU after starting empiric broad-spectrum antibiotics and vasopressors 1. Catheter associated UTI complicated by septic shock with ESBL E. coli Improved currently off vasopressors (Levophed, vasopressin, and epinephrine), leukocytosis resolved, remain afebrile will continue meropenem until urine culture identification and sensitivity available,. 2. Nonoliguric CANDICE; patient most likely related to ATN. Renal ultrasound with no acute abnormalities. Renal function is continuing to improve. Today's serum creatinine 1.1, bicarb 28, potassium 3.7, urine output 2 L over the past 24 hours draining both suprapubic cystostomy and indwelling Ballard catheter 3. Non-STEMI type 2 in underlying chronic artery disease status post stent No sign of heart failure, nonobstructive coronary artery disease on October 24, continue with antiplatelet therapy and statin therapy. 4. Asymptomatic superior mesenteric artery critical stenosis by CTA of the abdomen; vascular surgery to see if we can stand the superior mesenteric artery on Thursday, continue on heparin drip 5. Likely anemia of chronic disease No sign of overt clinical bleeding, hemoglobin stable around 10, #6 paroxysmal atrial fibrillation Currently in normal sinus, amiodarone resumed by technology consultant, will transit to [facility] once procedures done DVT prophylaxis, heparin drip Disposition; I will downgrade the patient to general medical floor today
[2024-10-25] MEDS: Meropenem 1,000 MG in NA CHLORIDE 0.9% 100 ML IV SCH (16:42)
[2024-10-25] MEDS: ATORVASTATIN 40 MG TAB PO SCH (21:12)
[2024-10-26] MEDS: FUROSEMIDE 40 MG/4 ML VIAL IV ONE (01:27)
[2024-10-26 05:43] LABS: Absolute Basophils 0.1 K/uL (0-0.5); Absolute Eosinophils 0.1 K/uL (0-0.5); Absolute Lymphocytes (CBC) 1.1 K/uL (0.7-4.9); Absolute Monocytes 1.9 K/uL (0.1-1.3); Absolute Neutrophil 5.1 K/uL (1.8-8.0); Eosinophils % 1.7 % (0-4.4); Hematocrit 30.4 % (39.6-49.0); Hemoglobin 9.9 g/dL (13.6-17.9); Lymphocytes % 13.4 % (15.3-44.8); MCHC 32.6 g/dL (32.0-36.0); MCV 97.9 fL (80-100); Monocytes % 22.8 % (3.3-12.3); Neutrophils % 61.1 % (41.7-73.7); Platelets 140 thou/uL (152-406); RBC Red Blood Cell Count 3.11 M/uL (4.33-5.43); Red Cell Distribution Width 20.3 % (12.1-15.2)
[2024-10-26 05:57] LABS: Anion Gap 8.5 mEq/L (5.0-15.0); Magnesium 1.9 mg/dL (1.6-2.4); Potassium 3.5 mEq/L (3.5-5.1)
[2024-10-26] MEDS: KCL 20 MEQ/100 mL IVPB 20 MEQ/100 ML BAG IV SCH (09:40)
--- NOTE | 2024-10-26 09:40 | P.PN ---
Subjective Date of Service: 10/26/24 Chief Complaint: Distended stomach on KUB, hypotension on IV pressors with CAD and new AK pr Subjective: No new changes, No C/O voiced, Tolerating diet, Ambulating, Improving Review of Systems 10-point ROS is otherwise unremarkable Physical Examination - Vital Signs Temperature: 99.3 F Blood Pressure: 144/65 Pulse: 74 Respirations: 15 Pulse Ox (%): 100 - Physical Exam General: Alert, In no apparent distress HEENT: Atraumatic, PERRLA, EOMI Neck: Supple, JVD not distended Respiratory: Clear to auscultation bilaterally, Normal air movement Cardiovascular: Regular rate/rhythm, Normal S1 S2 Gastrointestinal: Normal bowel sounds, No tenderness Musculoskeletal: No tenderness Integumentary: No rashes Neurological: Normal speech, Normal tone, Normal affect Lymphatics: No axilla or inguinal lymphadenopathy Other Physical/Emotional Findings: - Physical Exam. General: Not acutely ill looking, in no apparent distress,. HEENT: Normocephalic, atraumatic, nonicteric sclera, nonanemic conjunctive. Neck: Supple, without JVD or goiter or thyroid mass, NG tube in place draining clear gastric juice. Respiratory: Normal breathing effort, clear to auscultation bilaterally, no crackles no wheezing or rhonchi. Cardiovascular: Regular rate and rhythm, S1, S2 normal, no murmur no gallop. Gastrointestinal: Normal bowel sounds, nondistended, nontender, No ascites, , No masses, no hepatosplenomegaly, suprapubic cystostomy and indwelling Ballard catheter in place. Extremities : No clubbing, No peripheral edema,. Integumentary: No rashes, petechia, suspected lesions. Lymphatics: No axilla or cervical lymphadenopathy. Neurology; alert awake oriented x3, no focal neurologic deficit, normal affection . mood and behavior. - Studies Medications List Reviewed: Yes Assessment And Plan - Current Problems (Diagnosis) (1) NSTEMI (non-ST elevated myocardial infarction) Current Visit: Yes Status: Acute Plan: Coronary angiogram done today and show moderate LCX/LAD disease (FFR negative on both). continue ASA 81 mg daily continue Plavix 75 mg daily (2) Chronic combined systolic and diastolic heart failure Current Visit: Yes Status: Acute Plan: Patient is is having more swelling in bilateral lower extremities recommend Lasix 40 mg IV BID recommend Aldactone 25 mg daily monitor input and output and electrolytes (3) Atrial fibrillation Current Visit: Yes Status: Acute Plan: currently in sinus/paced. continue Amiodarone 100 mg daily heparin drip for anticoagulation. can be switched to his home dose Eliquis once no more procedures needed
--- NOTE | 2024-10-26 09:40 | P.PN ---
Subjective Date of Service: 10/26/24 Chief Complaint: Distended stomach on KUB, hypotension on IV pressors with CAD and new [place] pr Subjective: Improving He is doing well. He has no complaint. He is tolerating oral diet well without any nausea and vomiting or postprandial abdominal pain. He has both suprapubic cystostomy and indwelling Ballard catheter both draining urine. His heparin infusion was stopped due to minor bleeding at radial artery puncture site, bleeding controlled with compression dressing Review of Systems Other: Consitutional; fever(-), chills (-), rigor(-), night sweat(-), unintentional weight loss(-), malaise (-) HEENT; diplopia (-), rhinorrhea (-), epistaxis (-), otorrhea (-), otalgia (-) Respiratory; shortness of breath (-), wheezing (-), cough (-), sputum (-), pleuritic chest pain (-) Cardiovascular; chest pain (-), peripheral edema (-), paroxysmal nocturnal dyspnea (-), orthopnea (-) Gastrointestinal; nausea (-), vomiting (-), abdominal pain (-), diarrhea (-), constipation (-), melena (-), hematochezia (-) Genitourinary; urinary frequency (-), dysuria (-), urgency (-), flank pain (-), gross hematuria (-), incontinence (-) Skin; rash (-), 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 General: Not acutely ill looking, in no apparent distress,. HEENT: Normocephalic, atraumatic, nonicteric sclera, nonanemic conjunctive. Neck: Supple, without JVD or goiter or thyroid mass, NG tube in place draining clear gastric juice. Respiratory: Normal breathing effort, clear to auscultation bilaterally, no crackles no wheezing or rhonchi. Cardiovascular: Regular rate and rhythm, S1, S2 normal, no murmur no gallop. Gastrointestinal: Normal bowel sounds, nondistended, nontender, No ascites, , No masses, no hepatosplenomegaly, suprapubic cystostomy and indwelling Ballard catheter in place. Extremities : No clubbing, No peripheral edema, right wrist in compression dressing, no bleeding on dressing. Integumentary: No rashes, petechia, suspected lesions. Lymphatics: No axilla or cervical lymphadenopathy. Neurology; alert awake oriented x3, no focal neurologic deficit, normal affection . mood and behavior. - Studies Medications List Reviewed: Yes Assessment And Plan - Plan Patient is an 83-year-old gentleman with a history of BPH, obstructive uropathy status post suprapubic cystostomy, coronary artery disease status postcoronary stent, hypertension came to the hospital with septic shock. Patient lives by himself. He had a suprapubic catheter placed in December 2023. The family states this was because of a large prostate and multiple kidney stones. Since patient had a suprapubic catheter he has had episodes of sepsis x 3. He was admitted on MICU after starting empiric broad-spectrum antibiotics and vasopressors 1. Catheter associated UTI complicated by septic shock with ESBL E. coli Improved currently off vasopressors (Levophed, vasopressin, and epinephrine), leukocytosis resolved, remain afebrile will continue meropenem until urine culture identification and sensitivity available,. Called the microbiology lab yesterday still unable to get final report of urine culture result 2. Nonoliguric CANDICE; patient most likely related to ATN. Resolved, renal ultrasound with no acute abnormalities. Renal function is continuing to improve. , urine output 2 L over the past 24 hours draining both suprapubic cystostomy and indwelling Ballard catheter 3. Non-STEMI type 2 in underlying chronic artery disease status post stent No sign of heart failure, nonobstructive coronary artery disease on October 24, continue with antiplatelet therapy and statin therapy. 4. Asymptomatic superior mesenteric artery critical stenosis by CTA of the abdomen; Case discussed with vascular surgery, Dr Thompson this morning. I agree with him that patient does not need any intervention at the moment I will advance his diet to regular diet 5. anemia of chronic disease and perioperative blood loss hemoglobin stable around 10, minor bleeding at radial artery puncture site for coronary angiogram controlled by compression dressing, no transfusion indicated #6 paroxysmal atrial fibrillation Currently in normal sinus, on amiodarone, will resume apixaban starting tomorrow DVT prophylaxis, heparin drip to apixaban Disposition; patient ready for downgrade, order is placed yesterday
[2024-10-26] MEDS: APIXABAN 5 MG TABLET PO SCH (09:52)
--- NOTE | 2024-10-26 12:11 | RAD REPORT ---
Procedure: Chest Single View HISTORY: Shortness of breath COMPARISON: October 17, 2024 FINDINGS: Mild bilateral pulmonary opacities. Bibasilar atelectasis Moderate right and small moderate left pleural effusions Cardiomegaly. Pacemaker lead in place. IMPRESSION: Mild bilateral pulmonary opacities probably pulmonary edema Moderate right and [id number] left pleural effusions
--- NOTE | 2024-10-26 14:17 | P.PN ---
Subjective Date of Service: 10/26/24 Chief Complaint: Distended stomach on KUB, hypotension on IV pressors with CAD and new SD pr Subjective: Improving (Feels well. Family at bedside. Tolerating po diet well.) Review of Systems 10-point ROS is otherwise unremarkable General: Weakness (Improved.) Physical Examination - Vital Signs Temperature: 99.3 F Blood Pressure: 144/65 Pulse: 74 Respirations: 15 Pulse Ox (%): 100 - Physical Exam General: Alert, In no apparent distress, Oriented x3, Cooperative HEENT: Atraumatic, Normocephalic, PERRLA, EOMI Neck: Supple Respiratory: Normal air movement Cardiovascular: Normal pulses, Regular rate/rhythm, Edema (LEs 3+) Gastrointestinal: Normal bowel sounds, Soft and benign Neurological: Normal speech Other Physical/Emotional Findings: - Physical Exam. General: Not acutely ill looking, in no apparent distress,. HEENT: Normocephalic, atraumatic, nonicteric sclera, nonanemic conjunctive. Neck: Supple, without JVD or goiter or thyroid mass, NG tube in place draining clear gastric juice. Respiratory: Normal gwendolyn thing effort, clear to auscultation bilaterally, no crackles no wheezing or rhonchi. Cardiovascular: Regular rate and rhythm, S1, S2 normal, no murmur no gallop. Gastrointestinal: Normal bowel sounds, nondistended, nontender, No ascites, , No masses, no hepatosplenomegaly, suprapubic cystostomy and indwelling Ballard catheter in place. Extremities : No clubbing, No peripheral edema, right wrist in compression dressing, no bleeding on dressing. Integumentary: No rashes, petechia, suspected lesions. Lymphatics: No axilla or cervical lymphadenopathy. Neurology; alert awake oriented x3, no focal neurologic deficit, normal affection . mood and behavior. - Studies Medications List Reviewed: Yes Assessment And Plan - Current Problems (Diagnosis) (1) Abdominal distension Current Visit: Yes Status: Acute Comment: Improved. (2) Acute distention of stomach Current Visit: Yes Status: Acute Comment: Improved. (3) History of CAD (coronary artery disease) Current Visit: Yes Status: Acute (4) NSTEMI (non-ST elevated myocardial infarction) Current Visit: Yes Status: Acute (5) Septic shock due to urinary tract infection Current Visit: Yes Status: Acute - Plan REC: 1) slowly increase / advance diet 2) await possible IR SMA stent or PCI or other therapy 3) GI clinic f/u
--- NOTE | 2024-10-26 18:26 | P.PN ---
Date of Service: 10/26/24 history: The patient is a 83-year-old male, who was admitted to the hospital with distended stomach, abdominal discomfort as well as hypotension. The patient states that he does not have any history of postprandial pain. Denies any recent weight loss. His abdominal pain is actually resolved. Today, patient states that he has no pain at all on palpation. His diet is being advanced without any issue. I reviewed the findings of the CT examination with the patient. 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 The celiac artery is widely patent. I explained to the patient that if he had symptomatic mesenteric ischemia, with symptoms of abdominal pain, postprandial pain, or weight loss, we would offer revascularization therapy. At present, I do not feel that the patient has any symptoms of acute mesenteric ischemia. Additionally, he CT scan did not demonstrate any bowel wall thickening in the small bowel. As such, I recommend continued conservative management. I can follow the patient as an outpatient in [place]. He stated that he will also be going back to his home in [place], and I recommended that he obtain vascular follow-up there. He is agreeable to this treatment strategy. PMH: Anemia Cardiac dysrhythmia Non-STEMI past surgical history: Coronary revascularization, AICD Review of systems: 10 point ROS noncontributory. Specifically, patient denies any history of weight loss or postprandial pain. Temp Pulse Resp BP Pulse Ox 99.3 F 74 15 144/65 H 100 10/26/24 14:17 10/26/24 14:17 10/26/24 14:17 10/26/24 14:17 10/26/24 14:17 Laboratory Last Values WBC 14.10 thou/uL (4.3-10.9) H 10/17/24 12:55 RBC 3.09 M/uL (4.33-5.43) L 10/17/24 12:55 Hgb 9.9 g/dL (13.6-17.9) L 10/17/24 12:55 Hct 29.8 % (39.6-49.0) L 10/17/24 12:55 MCV 96.7 fL (80-100) 10/17/24 12:55 MCH 32.1 pg (27.0-35.0) 10/17/24 12:55 MCHC 33.2 g/dL (32.0-36.0) 10/17/24 12:55 RDW 22.5 % (12.1-15.2) H 10/17/24 12:55 Plt Count 161 thou/uL (152-406) 10/17/24 12:55 MPV 6.9 fL (7.6-11.3) L 10/17/24 12:55 Neutrophils % 56.3 % (41.7-73.7) 10/17/24 12:55 Lymphocytes % 6.4 % (15.3-44.8) L 10/17/24 12:55 Monocytes % 36.2 % (3.3-12.3) H 10/17/24 12:55 Eosinophils % 0.7 % (0-4.4) 10/17/24 12:55 Basophils % 0.4 % (0-1.3) 10/17/24 12:55 Absolute Neutrophils 8.0 K/uL (1.8-8.0) 10/17/24 12:55 Segmented Neutrophils 63 % (40-80) 10/17/24 12:55 Band Neutrophils 2 % (0-1) H 10/17/24 12:55 Absolute Lymphocytes 0.9 K/uL (0.7-4.9) 10/17/24 12:55 Lymphocytes 4 % (15-42) L 10/17/24 12:55 Monocytes 30 % (0-10) H 10/17/24 12:55 Absolute Monocytes 5.1 K/uL (0.1-1.3) H 10/17/24 12:55 Eosinophils 1 % (0-3) 10/17/24 12:55 Absolute Eosinophils 0.1 K/uL (0-0.5) 10/17/24 12:55 Absolute Basophils 0.1 K/uL (0-0.5) 10/17/24 12:55 Platelet Estimate Adeq 10/17/24 12:55 Anisocytosis 2+ 10/17/24 12:55 Morphology Comment Noted (NOT SEEN) 10/17/24 12:55 PT 18.5 SECONDS (9.4-12.5) H 10/17/24 14:53 INR 1.77 10/17/24 14:53 APTT 30.7 SECONDS (24.3-36.9) 10/17/24 14:53 Sodium 139 mEq/L (136-145) 10/17/24 14:00 Potassium 3.5 mEq/L (3.5-5.1) 10/17/24 14:00 Chloride 109 mEq/L (98-107) H 10/17/24 14:00 Carbon Dioxide 22 mEq/L (21-32) 10/17/24 14:00 Anion Gap 11.5 mEq/L (5.0-15.0) 10/17/24 14:00 BUN 36 mg/dL (7-18) H 10/17/24 14:00 Creatinine 2.36 mg/dL (0.70-1.30) H 10/17/24 14:00 Est GFR (CKD-EPI) 27 ml/min (=/>90) L 10/17/24 14:00 Glucose 96 mg/dL (74-106) 10/17/24 14:00 Lactic Acid 2.6 mmol/L (0.4-2.0) H* 10/17/24 12:55 Lactic Acid F/U @ 2Hr Reorder 10/17/24 13:37 Calcium 9.7 mg/dL (8.5-10.1) 10/17/24 14:00 Total Bilirubin 1.2 mg/dL (0.2-1.0) H 10/17/24 14:00 AST 23 U/L (15-37) 10/17/24 14:00 ALT 16 U/L (16-61) 10/17/24 14:00 Alkaline Phosphatase 127 U/L (45-117) H 10/17/24 14:00 Serum Total Protein 6.3 g/dL (6.4-8.2) L 10/17/24 14:00 Albumin 2.2 g/dL (3.4-5.0) L 10/17/24 14:00 Globulin 4.1 g/dL (2.3-3.5) H 10/17/24 14:00 Albumin/Globulin Ratio 0.5 (1.1-1.8) L 10/17/24 14:00 Urine Color [place] (Yellow) 10/17/24 12:55 Urine Clarity Extremely turbid (Clear) H 10/17/24 12:55 Urine pH 6.0 (5.0-7.0) 10/17/24 12:55 Ur Specific [place] 1.017 (1.005-1.030) 10/17/24 12:55 Glucose (UA)(Auto) Negative (Negative) 10/17/24 12:55 Urine Ketones Negative (Negative) 10/17/24 12:55 Urine Blood 3+ (over) (Negative) H 10/17/24 12:55 Urine Nitrite 1+ (Negative) H 10/17/24 12:55 Urine Bilirubin Negative (Negative) 10/17/24 12:55 Urine Urobilinogen Normal (Normal) 10/17/24 12:55 Ur Leukocyte Esterase 500 [place]/uL (Negative) H 10/17/24 12:55 Urine RBC >50 /HPF (None Seen) H 10/17/24 12:55 Urine WBC >50 /HPF (<5) H 10/17/24 12:55 Urine WBC Clumps Many /HPF (None Seen) H 10/17/24 12:55 Ur Squamous Epith Cells <5 /HPF (None Seen) 10/17/24 12:55 U Non-Squamous Epi Cells <5 /HPF (None Seen) 10/17/24 12:55 Calcium Oxalate Crystal Few /HPF (None Seen) 10/17/24 12:55 Urine Bacteria 20-50 /HPF (<20) H 10/17/24 12:55 Urine Culture Reflexed Reflexed 10/17/24 12:55 Urine Total Protein 3+ (Negative) H 10/17/24 12:55 SARS-CoV-2 Ag (Rapid) Negative (Negative) 10/17/24 12:55 ABO/Rh O POSITIVE 10/17/24 00:05 Solid Phase Ab Screen Negative 10/17/24 00:05 Crossmatch See Detail 10/17/24 00:05 Acetaminophen (Acetaminophen 500 Mg Tab) 500 mg PO Q4H PRN PRN Reason: Pain scale 2-4 (Mild) Last Admin: 10/21/24 16:25 Dose: 500 mg Al Hydrox/Mg Hydrox/Simethicone (Magnes/Alumin/Simet 30ml Ucup) 30 ml PO Q6H PRN PRN Reason: INDIGESTION Last Admin: 10/19/24 23:41 Dose: 30 ml Albuterol Sulfate (Albuterol 2.5 Mg/3 Ml Neb Jannet) 2.5 mg NEB [id number] PRN PRN Reason: SHORTNESS OF BREATH Amiodarone HCl (Amiodarone Hcl 200 Mg Tab) 100 mg PO DAILY [facility] Last Admin: 10/26/24 09:42 Dose: 100 mg Apixaban (Apixaban 5 Mg Tablet) 5 mg PO BID [facility] Last Admin: 10/26/24 09:52 Dose: 5 mg Atorvastatin Calcium (Atorvastatin 40 Mg Tab) 40 mg PO BEDTIME [facility] Last Admin: 10/25/24 21:12 Dose: 40 mg Carvedilol (Carvedilol 6.25 Mg Tab) 6.25 mg PO BID [facility] Last Admin: 10/26/24 09:44 Dose: 6.25 mg Clopidogrel Bisulfate (Clopidogrel 75 Mg Tablet) 75 mg PO DAILY [facility] Last Admin: 10/26/24 09:43 Dose: 75 mg Gabapentin (Gabapentin 300 Mg Cap) 300 mg PO BID [facility] Last Admin: 10/26/24 09:44 Dose: 300 mg Meropenem 1,000 mg/ Sodium (Chloride) 100 mls @ 200 mls/hr IV Q8HR [facility] Last Admin: 10/26/24 17:12 Dose: 100 mls Ipratropium [place] (Ipratropium Brom 0.5mg/2.5ml) 0.5 mg NEB [id number] PRN PRN Reason: SHORTNESS OF BREATH Melatonin (Melatonin 5 Mg Tablet) 5 mg PO BEDTIME PRN PRN PRN Reason: insomnia Last Admin: 10/25/24 22:54 Dose: 5 mg Phenol (Phenol 1.4% Oral [place] 180ml) 2 appl MM Q4H PRN PRN Reason: SORE THROAT Last Admin: 10/22/24 10:55 Dose: 2 appl Sodium Chloride (Sodium Chloride 0.9% 10ml Inj) 10 ml IV UD PRN PRN Reason: Diluant Physical Exam: GEN: NAD, cooperative with exam, well groomed, well developed, well nourished, in no acute distress HEENT: Head normocephalic, atraumatic, head normocephalic, head atraumatic, EOMI NECK: full range of motion, trachea midline, no increased JVP visible RESP: no respiratory distress, no use of accessory muscles of respiration GI: NL abdominal inspection, soft, nontender to palpation, no rebound/gua rding/rigidity. No tenderness to all 4 quadrants DERM: (-)diaphoresis, (-)periorbital xanthelasma, (-)xanthomas, (-)cyanosis PSYCH: alert and oriented to time, place, and person, normal mood, normal affect Right leg: Dorsalis pedis pulse palpable. Posterior tibial pulse palpable. Minimal edema. No ischemia or cyanosis. Left leg: Dorsalis pedis and posterior tibial pulses palpable. Minimal edema. No ischemia or cyanosis. Assessment/plan: 1. 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 Patent celiac artery. No evidence for bowel wall thickening 2. Patient denies any history of postprandial abdominal pain or recent weight loss 3. His abdominal exam is soft, nontender 4. Presently, I do not believe that the superior mesenteric artery stenosis is causing him any symptoms. I recommend continued conservative management with antiplatelet therapy as well as statins. I have offered to follow the patient as an outpatient when he is in [place]. I have urged him to get vascular consultation in [place] after he returns because he will need long-term follow- up.
[2024-10-27 05:30] LABS: Absolute Eosinophils 0.1 K/uL (0-0.5); Absolute Lymphocytes (CBC) 1.2 K/uL (0.7-4.9); Absolute Monocytes 1.6 K/uL (0.1-1.3); Basophils % 0.3 % (0-1.3); Eosinophils % 1.7 % (0-4.4); Hematocrit 26.2 % (39.6-49.0); Hemoglobin 8.8 g/dL (13.6-17.9); Lymphocytes % 17.8 % (15.3-44.8); MCH 32.6 pg (27.0-35.0); MCHC 33.7 g/dL (32.0-36.0); MCV 96.8 fL (80-100); MPV 8.2 fL (7.6-11.3); Monocytes % 22.9 % (3.3-12.3); Neutrophils % 57.3 % (41.7-73.7); Platelets 126 thou/uL (152-406); RBC Red Blood Cell Count 2.71 M/uL (4.33-5.43); Red Cell Distribution Width 20.2 % (12.1-15.2)
[2024-10-27 05:55] LABS: Anion Gap 8.5 mEq/L (5.0-15.0); Magnesium 1.9 mg/dL (1.6-2.4); Phosphorus 2.7 mg/dL (2.5-4.9); Potassium 3.5 mEq/L (3.5-5.1)
[2024-10-27 06:03] VITALS: BMI 29.2
[2024-10-27] MEDS: POTASSIUM CL SA 10 MEQ TAB PO ONE (07:40)
[2024-10-27] MEDS ORDERED: APIXABAN 5 MG TABLET PO SCH (09:00)
--- NOTE | 2024-10-27 09:33 | P.PN ---
Subjective Date of Service: 10/27/24 Chief Complaint: Distended stomach on KUB, hypotension on IV pressors with CAD and new CA pr Subjective: No new changes Patient has no complaint he is visiting [place] from [place] he is planning to go back to [place] home. He has his own urologist who placed suprapubic cystostomy back in [place], per patient Dr. Paris urologist here came by and told him that it is okay to remove indwelling Ballard catheter and keep the suprapubic cystostomy and go back to [place] and see his own urologist back. Review of Systems Other: Consitutional; fever(-), chills (-), rigor(-), night sweat(-), unintentional weight loss(-), malaise (-) HEENT; diplopia (-), rhinorrhea (-), epistaxis (-), otorrhea (-), otalgia (-) Respiratory; shortness of breath (-), wheezing (-), cough (-), sputum (-), pleuritic chest pain (-) Cardiovascular; chest pain (-), peripheral edema (-), paroxysmal nocturnal dyspnea (-), orthopnea (-) Gastrointestinal; nausea (-), vomiting (-), abdominal pain (-), diarrhea (-), constipation (-), melena (-), hematochezia (-) Genitourinary; urinary frequency (-), dysuria (-), urgency (-), flank pain (-), gross hematuria (-), incontinence (-) Skin; rash (-), pruritus (-) SOLDERER FURNACE; headache (-), paresthesia (-), numbness (-), paralysis (-) Physical Examination - Vital Signs Temperature: 97.9 F Blood Pressure: 131/58 Pulse: 74 Respirations: 17 Pulse Ox (%): 95 - Physical Exam Other Physical/Emotional Findings: - Physical Exam. General: Not acutely ill looking, in no apparent distress,. HEENT: Normocephalic, atraumatic, nonicteric sclera, nonanemic conjunctive. Neck: Supple, without JVD or goiter or thyroid mass, NG tube in place draining clear gastric juice. Respiratory: Normal breathing effort, clear to auscultation bilaterally, no crackles no wheezing or rhonchi. Cardiovascular: Regular rate and rhythm, S1, S2 normal, no murmur no gallop. Gastrointestinal: Normal bowel sounds, nondistended, nontender, No ascites, , No masses, no hepatosplenomegaly, suprapubic cystostomy and indwelling Ballard catheter in place, milvia-colored urine in both bags. Extremities : No clubbing, No peripheral edema, right wrist in compression dressing, no bleeding on dressing. Integumentary: No rashes, petechia, suspected lesions. Lymphatics: No axilla or cervical lymphadenopathy. Neurology; alert awake oriented x3, no focal neurologic deficit, normal affection . mood and behavior. - Studies Medications List Reviewed: Yes Assessment And Plan - Plan Patient is an 83-year-old gentleman with a history of BPH, obstructive uropathy status post suprapubic cystostomy, coronary artery disease status postcoronary stent, hypertension came to the hospital with septic shock. Patient lives by himself. He had a suprapubic catheter placed in December 2023. The family states this was because of a large prostate and multiple kidney stones. Since patient had a suprapubic catheter he has had episodes of sepsis x 3. He was admitted on MICU after starting empiric broad-spectrum antibiotics and vasopressors 1. Catheter associated UTI complicated by septic shock with ESBL E. coli Improved currently off vasopressors (Levophed, vasopressin, and epinephrine), leukocytosis resolved, remain afebrile will continue meropenem, today is day 11 planning on 14 days course of antibiotics. 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 Nonoliguric CANDICE; Resolved, renal ultrasound with no acute abnormalities. draining both suprapubic cystostomy and indwelling Ballard catheter Will clamp indwelling Ballard catheter before removal of it because per patient urologist here recommend to keep suprapubic cystostomy tube and discontinue Fo evonne catheter and go back to [place] and see back his own urologist 3. Non-STEMI type 2 in underlying chronic artery disease status post stent No sign of heart failure, nonobstructive coronary artery disease on October 24, continue with Plavix and statin therapy. 4. Asymptomatic superior mesenteric artery critical stenosis by CTA of the abdomen; Tolerating regular oral diet well, continue antiplatelet and statin 5. anemia of chronic disease and perioperative blood loss hemoglobin stable around 9-10, minor bleeding at radial artery puncture site for coronary angiogram controlled by compression dressing, no transfusion indicated #6 paroxysmal atrial fibrillation Currently in normal sinus, on amiodarone, apixaban resumed today DVT prophylaxis, heparin drip to apixaban Disposition; patient ready for downgrade, order is placed on October 25, plan to discharge home with oral or IV antibiotics by Thursday
[2024-10-27] MEDS: SMZ./TMP. 800/160 MG TABLET PO SCH (21:18)
[2024-10-28] MEDS ORDERED: FUROSEMIDE 20 MG TABLET PO PRN (07:30)
--- NOTE | 2024-10-28 08:41 | RAD REPORT ---
EXAMINATION: TWO VIEW CHEST XR CLINICAL INDICATION: Male, 83 years old. [facility] Follow-up on pulmonary edema TECHNIQUE: 2 view radiographs of the chest were performed. COMPARISON: 10/25/2024 FINDINGS: Bilateral central interstitial prominence and hazy opacities, stable, with mild improvement of right basilar pleuroparenchymal opacification. Right IJ CVC, with catheter tip terminating near the SVC/right innominate junction, stable. No pneumothorax. There may be small bilateral effusions, stabl e. Stable cardiomegaly. Mediastinal contours are unremarkable. IMPRESSION: Stable findings apart from mild partial improvement of right basilar pleuroparenchymal opacification. Findings again raise concern for pulmonary edema.
--- NOTE | 2024-10-28 10:09 | P.DS ---
Admission Date: 10/17/24 Discharge Date: 10/28/24 Disposition: ROUTINE DISCHARGE Discharge Condition: GOOD Reason for Admission: Distended stomach on KUB, hypotension on IV pressors with CAD and new ME pr Brief History of Present Illness: Patient is an 83-year-old gentleman who is visiting [place] from [place] with a history of BPH, obstructive uropathy status post suprapubic cystostomy, coronary artery disease status postcoronary stent, hypertension, paroxysmal atrial fibrillation on apixaban who came to the hospital with septic shock. Patient lives by himself. He had a suprapubic catheter placed in December 2023. The family states this was because of a large prostate and multiple kidney stones. Since patient had a suprapubic catheter he has had episodes of sepsis x 3. He was admitted on MICU after starting empiric broad-spectrum antibiotics and vasopressors Hospital Course: He was treated with broad-spectrum antibiotics with meropenem, vasopressor, indwelling Ballard catheter was inserted in addition to suprapubic cystostomy. He gradually improved and able to wean off vasopressor. He also underwent coronary angiogram which revealed nonobstructive coronary artery disease with a patent stent, no percutaneous coronary intervention was done and managed with furosemide, Plavix, statin. Heparin infusion was switched over back to to apixaban. Plavix is added to apixaban because CT of the abdomen and pelvis demonstrated severe SMA stenosis but he has no symptom of mesenteric ischemia or infarction. He was downgraded to general medical floor on October 26. His antibiotics was de-escalated to Bactrim when final urine culture and sensitivity was available. His indwelling Ballard catheter was clamped and he continued to have good urine output in the suprapubic colostomy without any sign of urinary retention. His follow-up chest x-ray demonstrated remained pulmonary edema but patient is asymptomatic, good oxygenation on room air, on exam only bibasilar crackle. His oral furosemide increased to 20 mg twice daily. He is being discharged home after removal of indwelling Ballard catheter and intrajugular central line. Plan is to finish 14-day course of antibiotics, keep suprapubic cystostomy and see his on urologist back in [place]. 1. Catheter associated UTI complicated by septic shock with ESBL E. coli Urine culture positive for ESBL E. coli, blood culture negative. Final urine culture and sensitivity revealed ESBL E. coli but sensitive to quinolone, Bactrim, Augmentin. 2. Nonoliguric CANDICE associated #1 Resolved, renal ultrasound with no acute abnormalities. Urine was draining both suprapubic cystostomy and indwelling Ballard catheter, urologist here recommend to keep suprapubic cystostomy tube and discontinue Ballard catheter and go back to [place] and see back his own urologist 3. Non-STEMI type 2 in underlying chronic artery disease status post stent nonobstructive coronary artery disease on October 24, continue with furosemide , Plavix and statin therapy. #4 acute on chronic decompensated heart failure with reduced ejection fraction Pulmonary edema was treated with IV and oral furosemide, transthoracic echocardiogram revealed global hypokinesia, left ventricular ejection fraction around 30% 5. Asymptomatic superior mesenteric artery critical stenosis by CTA of the abdomen Tolerating regular oral diet well, continue antiplatelet and statin, no vascular intervention indicated at this time 6. anemia of chronic disease and perioperative blood loss hemoglobin stable around 9-10, minor bleeding at radial artery puncture site for coronary angiogram controlled by compression dressing, no transfusion given #7 paroxysmal atrial fibrillation Remaind in normal sinus, on amiodarone, apixaban Vital Signs/Physical Exam: Temp Pulse Resp BP Pulse Ox 98.3 F 64 18 140/63 95 10/28/24 08:00 10/28/24 08:35 10/28/24 08:00 10/28/24 08:35 10/28/24 08:00 Other Physical/Emotional Findings: - Physical Exam. General: Not acutely ill looking, in no apparent distress,. HEENT: Normocephalic, atraumatic, nonicteric sclera, nonanemic conjunctive. Neck: Supple, without JVD or goiter or thyroid mass, NG tube in place draining clear gastric juice. Respiratory: Normal breathing effort, clear to auscultation bilaterally, no crackles no wheezing or rhonchi. Cardiovascular: Regular rate and rhythm, S1, S2 normal, no murmur no gallop. Gastrointestinal: Normal bowel sounds, nondistended, nontender, No ascites, , No masses, no hepatosplenomegaly, suprapubic cystostomy and indwelling Ballard catheter in place, milvia-colored urine in both bags. Extremities : No clubbing, No peripheral edema, right wrist in compression dressing, no bleeding on dressing. Integumentary: No rashes, petechia, suspected lesions. Lymphatics: No axilla or cervical lymphadenopathy. Neurology; alert awake oriented x3, no focal neurologic deficit, normal affection . mood and behavior. Laboratory Data at Discharge: WBC 6.90 thou/uL (4.3-10.9) 10/27/24 05:00 Hgb 8.8 g/dL (13.6-17.9) L D 10/27/24 05:00 Hct 26.2 % (39.6-49.0) L 10/27/24 05:00 Plt Count 126 thou/uL (152-406) L 10/27/24 05:00 PT 14.3 SECONDS (9.4-12.5) H 10/22/24 05:00 INR 1.37 10/22/24 05:00 APTT 70.9 SECONDS (24.3-36.9) H 10/25/24 05:10 Sodium 139 mEq/L (136-145) 10/27/24 05:00 Potassium 3.5 mEq/L (3.5-5.1) 10/27/24 05:00 BUN 20 mg/dL (7-18) H 10/27/24 05:00 Creatinine 1.15 mg/dL (0.70-1.30) 10/27/24 05:00 Glucose 92 mg/dL (74-106) 10/27/24 05:00 Phosphorus 2.7 mg/dL (2.5-4.9) 10/27/24 05:00 Magnesium 1.9 mg/dL (1.6-2.4) 10/27/24 05:00 Total Bilirubin 0.8 mg/dL (0.2-1.0) 10/23/24 07:25 AST 11 U/L (15-37) L 10/23/24 07:25 ALT 16 U/L (16-61) 10/23/24 07:25 Alkaline Phosphatase 79 U/L (45-117) 10/23/24 07:25 Home Medications: Allopurinol 300 mg PO BEDTIME 10/18/24 Amiodarone HCl 100 mg PO DAILY 10/18/24 Apixaban [Eliquis *] 2.5 mg PO BEDTIME 10/18/24 Apixaban [Eliquis] 7.5 mg PO BREAKFAST 10/18/24 Gabapentin 300 mg PO BID 10/18/24 Meclizine HCl 25 mg PO PRN PRN 10/18/24 Multivitamin [Daily Multivitamin] 1 each PO DAILY 10/18/24 Rosuvastatin Calcium 20 mg PO BEDTIME 10/18/24 Tamsulosin HCl [Flomax] 0.4 mg PO BEDTIME 10/18/24 Ubidecarenone [Co Q-10] 100 mg PO BEDTIME 10/18/24 carvediloL [Carvedilol] 6.25 mg PO BID 10/18/24 Amiodarone HCl [Cordarone*] 100 mg PO DAILY tab 10/28/24 Clopidogrel Bisulfate [Plavix*] 75 mg PO DAILY #30 10/28/24 Furosemide [Lasix] 20 mg PO BID 7 Days #14 10/28/24 Smz./Tmp. [Bactrim Ds 800 MG/160 MG*] 1 tab PO BID 2 Days #4 tab 10/28/24 New Medications: Smz./Tmp. [Bactrim Ds 800 MG/160 MG*] 1 tab PO BID 2 Days #4 tab Furosemide [Lasix] 20 mg PO BID 7 Days #14 Clopidogrel Bisulfate [Plavix*] 75 mg PO DAILY #30 Followup: SANTOSH FROST [Primary Care Provider] -
[2024-10-28] MEDS ORDERED: NYSTATIN PWDR 100000 UNIT/GM TOP SCH (12:00)
[2024-10-28 12:25] VITALS: BP 128/55; TEMP 97.8
[2024-10-28 12:34] VITALS: O2SAT 95
[2024-10-28] MEDS ORDERED: allopurinoL 300 MG TAB PO SCH (21:00)
== END 2024-10-28 12:36 | disposition home health service (06) | DRG 698 ==
LOC: ER 11:41 → ERHOLD 19:16 → 3RD-ICU 23:33 → 4TH 10-27 09:44
PROVIDERS: ADMIT Hospitalist; ATTEND Internal Medicine
PROC: 02HV33Z Insertion of Infusion Device into Superior Vena Cava, Percutaneous Approach (ICD-10-PCS; principal; 2024-10-17)
PROC: 0T9B70Z Drainage of Bladder with Drainage Device, Via Natural or Artificial Opening (ICD-10-PCS; 2024-10-17)
PROC: 3E033XZ Introduction of Vasopressor into Peripheral Vein, Percutaneous Approach (ICD-10-PCS; 2024-10-17)
PROC: 30233N1 Transfusion of Nonautologous Red Blood Cells into Peripheral Vein, Percutaneous Approach (ICD-10-PCS; 2024-10-18)
PROC: 0DH67UZ Insertion of Feeding Device into Stomach, Via Natural or Artificial Opening (ICD-10-PCS; 2024-10-20)
PROC: B2111ZZ Fluoroscopy of Multiple Coronary Arteries using Low Osmolar Contrast (ICD-10-PCS; 2024-10-24)
PROC: 4A023N7 Measurement of Cardiac Sampling and Pressure, Left Heart, Percutaneous Approach (ICD-10-PCS; 2024-10-24)
DX: T83.510A Infection and inflammatory reaction due to cystostomy catheter, initial encounter (principal); A41.51 Sepsis due to Escherichia coli [E. coli]; R65.21 Severe sepsis with septic shock; N17.0 Acute kidney failure with tubular necrosis; I21.A1 Myocardial infarction type 2; I50.23 Acute on chronic systolic (congestive) heart failure; N10 Acute pyelonephritis; D68.9 Coagulation defect, unspecified; E87.20 Acidosis, unspecified; N13.8 Other obstructive and reflux uropathy; E46 Unspecified protein-calorie malnutrition; K31.0 Acute dilatation of stomach; K55.1 Chronic vascular disorders of intestine; Z16.12 Extended spectrum beta lactamase (ESBL) resistance; I11.0 Hypertensive heart disease with heart failure; N40.1 Benign prostatic hyperplasia with lower urinary tract symptoms; M10.9 Gout, unspecified; N28.1 Cyst of kidney, acquired; E78.00 Pure hypercholesterolemia, unspecified; E88.09 Other disorders of plasma-protein metabolism, not elsewhere classified; D63.8 Anemia in other chronic diseases classified elsewhere; I48.0 Paroxysmal atrial fibrillation; L89.612 Pressure ulcer of right heel, stage 2; L89.301 Pressure ulcer of unspecified buttock, stage 1; F17.210 Nicotine dependence, cigarettes, uncomplicated; I25.10 Atherosclerotic heart disease of native coronary artery without angina pectoris; Z60.2 Problems related to living alone; Z95.5 Presence of coronary angioplasty implant and graft; Z88.8 Allergy status to other drugs, medicaments and biological substances; Z11.52 Encounter for screening for COVID-19; Z79.02 Long term (current) use of antithrombotics/antiplatelets; Z79.899 Other long term (current) drug therapy; Z79.01 Long term (current) use of anticoagulants; Z68.30 Body mass index [BMI] 30.0-30.9, adult; Z95.810 Presence of automatic (implantable) cardiac defibrillator
CPT/HCPCS: 36415; 36556; 71045; 71046; 72170; 72191; 74018; 74175; 74176; 76937; 80048; 80053; 81001; 83605; 83615; 83735; 83880; 84100; 84145; 84484; 85025; 85347; 85379; 85610; 85730; 86850; 86900; 86901; 86920; 87040; 87086; 87088; 87205; 87804; 87811; 93005; 93306; 93458; 93571; 97116; 97161; 97530; 99152; 99153; 99291; 99292; C1769; C1893; J0171; J0461; J1644; J1720; J1940; J2003; J2185; J2250; J2310; J2470; J2543; J2785; J3010; J3475; J3480; J7030; J7040; J7050; J7060; J7613; J7644; P9016; P9047; Q9966; Q9967